=== PATIENT | male | born 1950 | race Caucasian/White ===

== ENCOUNTER 2019-02-22 18:45 | Observation (INO) | payer MEDICARE, SELFPAY ==
[2019-02-22 18:47] VITALS: BP 165/81; PULSE 66; RESP 20; TEMP 36.7; O2SAT 98; BMI 23.6
--- NOTE | 2019-02-22 18:48 | ED.RN ---
CALLED FOR EKG PER RN REQUEST, PULLED OLD EKGS FOR
--- NOTE | 2019-02-22 19:06 | EKG12_ITS ---
Test Reason : CP Blood Pressure : / mmHG Vent. Rate : 058 BPM Atrial Rate : 058 BPM P-R Int : 184 ms QRS Dur : 114 ms QT Int : 426 ms P-R-T Axes : 057 -15 050 degrees QTc Int : 418 ms Sinus bradycardia Otherwise normal ECG Confirmed by RAFAEL HECK, LOC ([id number]), supervising film or videotape editor HOME DAHL ([id number]) on 03/01/2019 9:31:30 A M Referred By: Mac Corey Confirmed By:MARGO HALL MD
--- NOTE | 2019-02-22 19:06 | RAD_ITS ---
STUDY: X-RAY CHEST REASON FOR EXAM: Male, 68 years old. Chest pain TECHNIQUE: Frontal view of the chest COMPARISON: None. FINDINGS: The lungs are clear. There are no pleural effusions. There is no pneumothorax. The heart is normal in size. The visualized osseous structures are within normal limits. RAD/Chest 1 View (Portable) IMPRESSION: No acute thoracic pathology. Electronically Signed: Justin Eller, at 19:31 EDT Tel , Service support ,
[2019-02-22] MEDS: Aspirin 81 MG TAB.CHEW 324 MG PO (19:13)
--- NOTE | 2019-02-22 19:16 | ED.DCSUM_ITS ---
- ER Visit Summary Date of Service: 02/22/19 Chief Complaint: Chest pain History of Present Illness: The patient is a 68 M presenting with chest pain. Patient states this started while he was up in a tree stand. He had approximately 45 minutes of midsternal chest pain that radiated to his neck. He took 2 nitro and the symptoms resolved. He denies shortness of breath. He is pain-free now. He has a history of 7 previous stents and CABG in 2017. He is not a smoker. He has a history of diabetes, hypercholesterolemia. He is prescribed Viagra but has not been taking it. Physical Examination: Vitals are stable. Patient is afebrile. Alert no acute distress. HEENT exam is unremarkable. Neck is supple. Lungs are clear and equal bilaterally. Heart is regular rate and rhythm. Abdomen is soft nontender nondistended. Extremities are unremarkable. Skin is warm and dry. No focal neurologic deficit. Remainder of exam is unremarkable. Emergency Department Course and Treatment: Patient was given aspirin on arrival. EKG is sinus bradycardia rate of 58. CBC, chemistries unremarkable. Troponin is negative. Chest x-ray shows no acute process. Patient remains chest pain- free in the ED. Discussed with the hospitalist for observation. Disposition: Observation Impression: Chest pain This note was generated with [employer] dictation software. It may contain incorrect words, spelling, and punctuation that were not noted in review of the chart prior to signing ED Disposition - Plan for ED Patient: Referrals: Domingo Watts MD [STAFF PHYSICIAN] -
[2019-02-22 19:28] LABS: Absolute Lymphocyte Count 2.03 X10^3/uL (0.83-4.51); Basophil# 0.04 X10^3/uL; Basophil% 0.6 % (0-1); Eosinophil# 0.12 X10^3/uL; Eosinophils% 1.9 % (0-5); Hematocrit 44.8 % (40-54); Hemoglobin 14.7 g/dL (13.0-16.5); Lymphocyte # 2.03 X10^3/ul (4.0); Lymphocyte % 32.2 % (19-41); Mean Corp Hgb Conc 32.8 g/dL (32-36); Mean Corpuscular Hgb 30.7 pg (27.0-32.0); Mean Corpuscular Volume 93.5 fL (80-94); Mean Platelet Vol. 10.2 fl (6.2-12.0); Monocyte# 1.05 X10^3/uL; Monocyte% 16.6 % (0-10); NRBC Flagged by Analyzer 0 % (0-5); Neutrophil # 3.03 X10^3/uL (2.7-7.7); Neutrophil % 48.1 % (47-70); Platelet Count 158 K/mm3 (150-450); RBC Distribution Width CV 12.3 % (11.6-14.6); RBC Distribution Width SD 42.8 fl (35.1-43.9); Red Blood Count 4.79 M/mm3 (4.6-6.2); White Blood Count 6.3 K/mm3 (4.4-11.0)
[2019-02-22 19:30] LABS: Anion Gap 2 (5-15); BUN 19 mg/dL (7-18); BUN/Creat Ratio 20.2 RATIO (10-20); Calcium,Total 9.4 mg/dL (8.5-10.1); Chloride 105 mmol/L (98-107); Creatinine, Serum 0.94 mg/dL (0.70-1.30); EST Glomerular Filtration Rate 85 mL/min (>60); Est Glom Filt Rate - Afr Amer 102 mL/min (>60); Estimated Creatinine Clearance 92.34 ml/min; Glucose 68 mg/dL (74-106); Potassium 3.7 mmol/L (3.5-5.1); Sodium Level 139 mmol/L (136-145)
--- NOTE | 2019-02-22 20:36 | PCM.HP.STD ---
Problem List (1) Coronary artery disease status post CABG Status: Chronic (2) Chest pain Status: Acute (3) Dyslipidemia Status: Chronic (4) Diabetes mellitus type 2 Status: Chronic (5) Hypertension Status: Chronic History of Present Illness Date of Admission: 02/22/19 Chief Complaint: Chest pain The patient is a 68 year old M with history of coronary artery disease status post CABG on November 17, 2016 and 7 stents prior to CABG came to ED for sharp chest pain precordial with radiation to both jaws, lasting for about 45 minutes. Patient took 2 nitro and the symptoms got resolved. He denies diaphoresis, missed heartbeat or shortness of breath. Patient also felt sudden loss of balance/near falling on right side about 2 days ago on plain ground. Denies dizziness or near syncope. Patient heart care is by [facility], Dr. Meade in [facility]. Patient does not remember exactly when he had the last stress test or echo after 5 vessel CABG but states vaguely may be last year Currently patient does not have chest pain or shortness of breath. [] In ED, EKG shows sinus bradycardia at 58 with incomplete RBBB with mild conduction delay, QRS 114 ms, QTC [address]-T changes suggestive of ischemia. No significant change from prior EKG of 2011 but the EKG is old Past Medical History Past Medical History (Chronic Problems): Chronic Problems Coronary artery disease status post CABG (Chronic) Dyslipidemia (Chronic) Diabetes mellitus type 2 (Chronic) Hypertension (Chronic) Allergies succinylcholine Adverse Reaction (Verified 02/22/19 18:47) Unknown tramadol Adverse Reaction (Verified 02/22/19 18:47) Unknown crestor Adverse Reaction (Uncoded 02/22/19 18:47) Unknown gluten Adverse Reaction (Uncoded 02/22/19 18:47) Unknown vicoden Adverse Reaction (Uncoded 02/22/19 18:47) Unknown Home Medications: Ambulatory Orders Medication Instructions Recorded Aspirin [Aspirin, Baby] 81 mg PO DAILY@0800 12/02/15 Calcium Carbonate [Calcium] 1,500 mg PO BID 12/02/15 Cholecalciferol (VIT D3) [Vitamin 2,000 unit PO DAILY 12/02/15 D] Ezetimibe [Zetia] 10 mg PO DAILY 12/02/15 Flaxseed Oil [[place]-3 Flaxseed Oil] 1,000 mg PO BID 12/02/15 Insulin Aspart [Novolog] 0 unit SQ DAILY 12/02/15 Insulin Glargine,Hum.rec.anlog 0 unit SQ PRN PRN 12/02/15 [Lantus] Nitroglycerin (INPATIENT USE) 0.4 mg SUBLINGUAL Q5M PRN 12/02/15 [Nitrostat] [place] Oil/[place]-3 Fatty Acids [Sv 1 cap PO BID 12/02/15 [place] Oil 1,000 mg Softgel] Amoxicillin [Amoxil] 2,000 mg PO DAILY PRN PRN 02/22/19 Cinnamon Bark [Cinnamon] 500 mg PO BID 02/22/19 Fluvastatin Sodium [Fluvastatin ER] 80 mg PO DAILY 02/22/19 Glucosamine HCl 1,500 mg PO DAILY 02/22/19 Magnesium Oxide [Mag-Ox 400] 400 mg PO BID 02/22/19 Metoprolol Succinate [Toprol Xl] 25 mg PO DAILY 02/22/19 Multivitamin with Minerals 1 tab PO DAILY 02/22/19 [Multiple Vitamin] Mv-Mn/Folic AC/Alip Acid/Coq10 1 tab PO DAILY 02/22/19 [Diabetic Vitamin Capsule] Parsley/Garlic [Garlic & Parsley 1 tab PO BID 02/22/19 Tablet] Sildenafil Citrate 100 mg PO DAILY 02/22/19 Turmeric Root Extract [Turmeric 1,000 mg PO BID 02/22/19 Curcumin] Vitamin B Complex 1 ea PO BID 02/22/19 Surgical History: - - back surgery, neuroplasty decompression median nerve at carpal tunnel, history of rotator cuff repair. Smoking Status: Never smoker - *Family History Paternal History Items: Heart Disease - Maternal History Items: Heart Disease Review of Systems Constitutional: Denies: Chills, Fever, Weight Change HEENT: Denies: Head Aches, Sinus Congestion, Sinus Drainage Cardiovascular: Reports: Chest Pain. Denies: Palpitations Respiratory: Denies: Cough, Shortness of breath at rest, Sputum production Gastrointestinal: Denies: Abdominal Pain, Nausea, Vomiting Genitourinary: Denies: Dysuria Musculoskeletal: Denies: Joint Pain, Joint Tenderness Skin: Denies: Rash, Wounds Neurological: Denies: Numbness, Tingling, Focal weakness Psychiatric: Denies: Anxiety, Depression, Homicidal Ideations, Suicidal Ideations Hematologic/ Lymphatic: Denies: Easy Bruising, Easy Bleeding VTE Information - Inpt Only VTE Present on Admission: No VTE Mechan Device Prophylaxis: None VTE Pharm Prophylaxis ordered?: Yes Patient Problems: Active and Suspected Problems Chest pain (Acute) - Physical Exam General: Alert, Oriented x3, Cooperative HEENT: Atraumatic, PERRLA, EOMI, Normocephalic Neck: Supple, No JVD, Negative Carotid Bruits Lungs: Clear to auscultation, Normal air movement, No rhonchi, No wheeze, No rales Cardiovascular: Regular rate, Regular Rhythm, Normal S1, Normal S2, Murmur - Faint systolic murmur, grade 2/6 over left lower sternal border and mitral region. Abdomen: Bowel Sounds Present, Soft, Non Tender, Non-Distended Extremities: No edema, Capillary Refill Less than 3 Seconds Skin: No rashes, No breakdown Musculoskeletal: No Tenderness to Palpation of Joints or Extremities, Arthritic Changes Neurological: Cranial nerves II-XII grossly intact, Deep Tendon Reflexes 2+/4 and Symmetrical, Neuro grossly intact Psych/Mental Status: Normal Affect, Appropriate Vital Signs Temp Pulse Resp BP Pulse Ox 98.1 F 66 20 H 165/81 H 98 02/22/19 18:47 02/22/19 18:47 02/22/19 18:47 02/22/19 18:47 02/22/19 18:47 Oxygen Flow Rate (L/min) 2 Oxygen Delivery Method Nasal Cannula Weight: 194 lb 8 oz Body Mass Index (BMI) 23.6 Finger Stick Blood Glucose 323 Laboratory Tests Past 24 Hrs 02/22/19 02/22/19 18:49 18:49 WBC 6.3 RBC 4.79 Hgb 14.7 Hct 44.8 MCV 93.5 MCH 30.7 MCHC 32.8 RDW Std Deviation 42.8 RDW Coeff of Kavon 12.3 Plt Count 158 MPV 10.2 Immature Gran % (Auto) 0.600 Neut % (Auto) 48.1 Lymph % (Auto) 32.2 [place] % (Auto) 16.6 H Eos % (Auto) 1.9 Baso % (Auto) 0.6 Absolute Neuts (auto) 3.0 Absolute Lymphs (auto) 2.03 Nucleated RBC % 0 Sodium 139 Potassium 3.7 Chloride 105 Carbon Dioxide 32.0 Anion Gap 2 L BUN 19 H Creatinine 0.94 Estim Creat Clear Calc 92.34 Est GFR (MDRD) Af Amer 102 Est GFR (MDRD) Non-Af 85 BUN/Creatinine Ratio 20.2 H Glucose 68 L Calcium 9.4 Troponin I < 0.015 Assessment/Plan All Active Problems Chest pain (Acute) The patient is a 68 year old M with history of coronary artery disease status post CABG on November 17, 2016 and 7 stents prior to CABG came to ED for sharp chest pain precordial with radiation to both jaws, lasting for about 45 minutes. Patient took 2 nitro and the symptoms got resolved. Currently patient does not have chest pain or shortness of breath. [] In ED, EKG shows sinus bradycardia at 58 with incomplete RBBB with mild conduction delay, QRS 114 ms, QTC [address]-T changes suggestive of ischemia. No significant change from prior EKG of 2011 but the EKG is old 1. Atypical chest pain concern of angina pectoris, rule out acute coronary syndrome: Patient is being admitted to PCU. Serial troponin enzymes. Repeat EKG. Patient is good for treadmill nuclear stress test tomorrow a.m. Obtain old records of echo, stress test and cardiac cath [place] [facility] [place] [facility]. Patient's primary content curator Dr. Meade. Continue patient home dose of aspirin, metoprolol and statin. 2. Diabetes mellitus type 2: Patient has insulin pump. Most recent reading 125 mg/dL. On BMP, glucose 68. 3. Hypertension: Blood pressure is slightly elevated 165/81. Start on losartan low-dose 25 mg daily. 4. Dyslipidemia DVT prophylaxis: On Lovenox 40 mg subcu daily. Code Visit OBSV E&M: 40987 Initial observation care L3
[2019-02-22 20:54] VITALS: BP 152/79; PULSE 54; RESP 16; TEMP 36.5; O2SAT 100
[2019-02-22 20:57] VITALS: BP 141/78
--- NOTE | 2019-02-22 21:02 | EKG12_ITS ---
Test Reason : CP ADMIT Blood Pressure : / mmHG Vent. Rate : 050 BPM Atrial Rate : 050 BPM P-R Int : 194 ms QRS Dur : 108 ms QT Int : 438 ms P-R-T Axes : 070 -04 054 degrees QTc Int : 399 ms Sinus bradycardia Otherwise normal ECG When compared with ECG of 22-FEB-2019 18:55, MANUAL COMPARISON REQUIRED, DATA IS UNCONFIRMED Confirmed by RAFAEL HECK, LOC ([id number]), news assignment editor NEDRA KIMBLE ([id number]) on 03/01/2019 10:15:27 AM Referred By: Mac Corey Confirmed By:MARGO HALL MD
[2019-02-22 21:04] VITALS: BMI 22.8
[2019-02-22 21:27] VITALS: BMI 22.8
[2019-02-22 21:28] VITALS: PULSE 54
[2019-02-22] MEDS: 0.9% Normal Saline 1,000 ML 75 ML IV (22:02)
--- NOTE | 2019-02-22 22:35 | NURSING ---
Dr. Corey notified that pt. refusing Cozaar due to lowers his BP too much and refusing atorvastatin due to allergy. Pt. wants to talk with his own legend maker before starting new BP meds. No further orders.
--- NOTE | 2019-02-22 22:45 | NURSING ---
Pt. has insulin pump and checked his own blood sugar with home glucometer. Result was 97 with no insulin given.
[2019-02-22] MEDS: Enoxaparin 40 MG/0.4 ML Syringe SC (22:47)
[2019-02-22 22:59] VITALS: PULSE 65
[2019-02-22 23:34] VITALS: O2SAT 98
[2019-02-23] VITALS (7 sets, daily range): BP systolic 129–145; BP diastolic 66–76; PULSE 46–61; RESP 16–18; TEMP 36.4–36.6; O2SAT 98–99
--- NOTE | 2019-02-23 05:00 | EKG12_ITS ---
Test Reason : AM EKG Blood Pressure : / mmHG Vent. Rate : 050 BPM Atrial Rate : 050 BPM P-R Int : 186 ms QRS Dur : 112 ms QT Int : 450 ms P-R-T Axes : 069 004 054 degrees QTc Int : 410 ms Sinus bradycardia Incomplete right bundle branch block Borderline ECG When compared with ECG of 22-FEB-2019 20:53, MANUAL COMPARISON REQUIRED, DATA IS UNCONFIRMED Confirmed by RAFAEL HECK, LOC ([id number]), non linear editor NEDRA KIMBLE ([id number] on 03/01/2019 10:13:21 AM Referred By: Mac Corey Confirmed By:MARGO HALL MD
[2019-02-23 06:45] LABS: Bedside Glucose 123 mg/dL (70-110)
[2019-02-23] MEDS: Aspirin 81 MG TAB.CHEW 162 MG PO (06:46)
[2019-02-23 07:11] LABS: Cholesterol 99 mg/dL (200); High Density Lipoprotein 44 mg/dL; Thyroid Stim Hormone (TSH) 2.71 uIU/mL (0.358-3.74); Triglycerides 70 mg/dL; Very Low Density Lipoprotein 14 mg/dL (5-40)
[2019-02-23] MEDS: Ezetimibe 10 MG Tablet PO (10:02)
[2019-02-23] MEDS: Calcium Carbonate 500 MG Tablet 1500 MG PO (10:02)
[2019-02-23] MEDS: Multivitamins,Therapeutic Tablet 2 TABLET PO (10:02)
[2019-02-23] MEDS: Metoprolol(XL)Succ 25 MG Tablet PO (10:02)
--- NOTE | 2019-02-23 11:07 | STRESSREP_ITS ---
Stress Test Report Date: 02/23/2019 Procedure: Exercise tolerance test/imaging study Indications: Chest pain Consent: Per the patient Procedure: The patient exercised on a Jose protocol for 8 minutes achieving a peak heart rate of 130 bpm (85 % predicted maximal heart rate) with a peak blood pressure 160/82 mmHg and a peak MET capacity of 10.1 METs. The baseline ECG demonstrated normal sinus rhythm. The peak exercise ECG demonstrated sinus tachycardia with no significant ischemic changes. EKG during recovery revealed no significant ischemic changes. [There were no cardiac dysrhythmias pretest, during exercise, or recovery]. The functional capacity was considered above average for age. Patient had mild chest pressure at the end of exercise. The examination was discontinued secondary to leg discomfort and shoulder discomfort. Impression: 1. Technically adequate (percent predicted maximal heart rate greater than 85%) exercise tolerance test 2. Stress test is negative for exercise-induced EKG changes of ischemia 3. Patient had mild chest pressure at the end of exercise 4. Functional capacity is above average for age 5. Nuclear images pending Myocardial perfusion imaging study: Technique: The patient was injected with 12 mCi of technetium 99m Cardiolite and subsequently rest SPECT Cardiolite nuclear imaging was obtained in the horizontal long, vertical long, and short axis views. The patient exercised on a Jose protocol. Please see above for details. The patient was injected with 33 mCi of technetium 99m Cardiolite and subsequently stress SPECT Cardiolite nuclear imaging was obtained in the horizontal long, vertical long, and short axis views. A gated Cardiolite study at peak stress was obtained. Interpretation: Rest and stress SPECT Cardiolite nuclear imaging status post realignment, normalization, and attenuation correction, demonstrates overall normal myocardial radioisotope uptake. The gated Cardiolite study demonstrates no significant regional wall motion abnormalities. The reported LVEF is greater than 70 %. Impression: 1. There is no evidence of significant ischemia or infarction. 2. The gated Cardiolite study reports an LVEF of [greater than 70]%. This note was generated with [employer] software. It may contain incorrect words, spelling, and punctuation that were not noted in checking the note before signing.
--- NOTE | 2019-02-23 11:22 | NURSING ---
PT HAS OWN INSULIN PUMP. OKAY TO USE PER DR. EL. BG TAKEN THROUGH [facility]-[id number], NO COVERAGE NEEDED.
--- NOTE | 2019-02-23 11:30 | DCINST_ITS ---
- Discharge Diagnoses Current Active Problems: Current Active and Chronic Problems Coronary artery disease status post CABG (Chronic) Chest pain (Acute) Dyslipidemia (Chronic) Diabetes mellitus type 2 (Chronic) Hypertension (Chronic) You will use the following diet at home:: Cardiac Your food should be the consistency of: Regular Your liquids should be the consistency of: Regular/Thin Discharge Activity: Return to Normal Activity Weight Bearing Status: Weight bearing as tolerated Call your doctor if you observe: Shortness of breath, Chest pain Instructions: What Is Angina? Allergies/Adverse Reactions: Allergies succinylcholine Adverse Reaction (Verified 02/22/19 18:47) Unknown tramadol Adverse Reaction (Verified 02/22/19 18:47) Unknown crestor Adverse Reaction (Uncoded 02/22/19 18:47) Unknown gluten Adverse Reaction (Uncoded 02/22/19 18:47) Unknown vicoden Adverse Reaction (Uncoded 02/22/19 18:47) Unknown Medications to take at Discharge Aspirin [Aspirin, Baby] 81 mg PO DAILY@0800 12/02/15 Calcium Carbonate [Calcium] 1,500 mg PO BID 12/02/15 Cholecalciferol (VIT D3) [Vitamin D3] 2,000 unit PO DAILY 12/02/15 Ezetimibe [Zetia] 10 mg PO DAILY 12/02/15 Flaxseed Oil [[place]-3 Flaxseed Oil] 1,000 mg PO BID 12/02/15 Insulin Aspart [Novolog Vial] 0 unit SQ DAILY 12/02/15 Insulin Glargine,Hum.rec.anlog [Lantus] 0 unit SQ PRN PRN 12/02/15 Nitroglycerin (INPATIENT USE) [Nitrostat] 0.4 mg SUBLINGUAL Q5M PRN 12/02/15 [place] Oil/[place]-3 Fatty Acids [Sv [place] Oil 1,000 mg Softgel] 1 cap PO BID 12/02/15 Amoxicillin [Amoxil] 2,000 mg PO DAILY PRN PRN 02/22/19 Cinnamon Bark [Cinnamon] 500 mg PO BID 02/22/19 Fluvastatin Sodium [Fluvastatin ER] 80 mg PO DAILY 02/22/19 Glucosamine HCl 1,500 mg PO DAILY 02/22/19 Magnesium Oxide [Mag-Ox 400] 400 mg PO BID 02/22/19 Metoprolol Succinate [Toprol Xl] 25 mg PO DAILY 02/22/19 Multivitamin with Minerals [Multiple Vitamin] 1 tab PO DAILY 02/22/19 Mv-Mn/Folic AC/Alip Acid/Coq10 [Diabetic Vitamin Capsule] 1 tab PO DAILY 02/22/19 Parsley/Garlic [Garlic & Parsley Tablet] 1 tab PO BID 02/22/19 Sildenafil Citrate 100 mg PO DAILY PRN 02/22/19 Turmeric Root Extract [Turmeric Curcumin] 1,000 mg PO BID 02/22/19 Vitamin B Complex 1 ea PO BID 02/22/19 Primary Care Physician: Domingo Watts MD [STAFF PHYSICIAN] - Please follow up with your Primary Care Physician in: one week Test Results: Test results from this visit will be discussed in further detail at your follow- up appointment, if applicable. Proposed Discharge Date: 02/23/19
--- NOTE | 2019-02-23 11:31 | PCM.DC.SUM ---
Discharge Date and Diagnosis Date of Admission: 02/22/19 Date of Discharge: 02/23/19 - Primary Discharge Diagnosis Active and Suspected Problems Chest pain (Acute) - Secondary Discharge Diagnosis Chronic Problems Coronary artery disease status post CABG (Chronic) Dyslipidemia (Chronic) Diabetes mellitus type 2 (Chronic) Hypertension (Chronic) Hospital Course and Treatment Imaging Results: 02/23/19 05:55 Nuclear Stress Test - Treadmil [NM] AM (NON MEDS) Operations: None Procedures: Stress test Summary of Care Provided: The patient is a 68 year old M with a past medical history as listed. He has a history of CAD status post CABG in November 2016 and also had 7 stents prior to CABG. He was admitted through the ED with a complaint of sharp precordial chest pain which radiated to both jaws and lasted for about 45 minutes. Symptoms were relieved with 2 nitro tablets. He denied any assisted lightheadedness or dizziness, shortness of breath, palpitations or diaphoresis. In the ED, initial EKG showed sinus bradycardia with heart rate of 58 beats per minutes and EKG showed incomplete right bundle branch block with more conduction delay. There are no acute ST changes. Troponins x3 were negative. He was admitted and managed for chest pain to rule out ACS. He had a stress test on 02/23/2019 which showed no evidence of significant ischemia or infarction in the left ventricular EF was estimated to be 70%. Patient remained stable and was discharged on 110 1019. He is follow-up with his primary care doctor and greaser operator. Patient states he has a history of neck pain 8 due to arthritis and is due to see a neurosurgeon soon to be scheduled for surgery. Patient was counseled to keep this appointment. Patient seen and examined prior to discharge. He had no complaints and felt well. Review of systems otherwise negative. Labs and vitals reviewed. Home medication reviewed and reconciled. o/e: Vital Signs Height 6 ft 4 in Weight: 187 lb 6.287 oz Weight in Pounds 187.4 lbs Pulse Ox 99 Temperature 97.5 F Pulse Rate 61 Respiratory Rate 18 Blood Pressure [2nd BP] 141/78 Blood Pressure 129/76 Blood Pressure Position [2nd Semi-Fowlers BP] Blood Pressure Position Sitting [] General: Alert, Oriented x3, Cooperative HEENT: Atraumatic, PERRLA, EOMI, Normocephalic Neck: Supple, No JVD, Negative Carotid Bruits Lungs: Clear to auscultation, Normal air movement, No rhonchi, No wheeze, No rales Cardiovascular: Regular rate, Regular Rhythm, Normal S1, Normal S2, no audible murmurs Abdomen: Bowel Sounds Present, Soft, Non Tender, Non-Distended Extremities: No edema, Capillary Refill Less than 3 Seconds Skin: No rashes, No breakdown Musculoskeletal: No Tenderness to Palpation of Joints or Extremities, Arthritic Changes Neurological: Cranial nerves II-XII grossly intact, Deep Tendon Reflexes 2+/4 and Symmetrical, Neuro grossly intact Psych/Mental Status: Normal Affect, Appropriate Plan as above. - Physical Exam Vital Signs Temp Pulse Resp BP Pulse Ox 97.5 F L 61 18 129/76 H 99 02/23/19 09:55 02/23/19 10:02 02/23/19 09:55 02/23/19 09:55 02/23/19 09:55 Oxygen Flow Rate (L/min) 2 Oxygen Delivery Method Room Air Weight: 187 lb 6.287 oz Body Mass Index (BMI) 22.8 Finger Stick Blood Glucose 323 Intake and Output for Last 24 Hours 02/21/19 02/22/19 02/23/19 23:59 23:59 23:59 Intake Total 246.25 / 246.25 700 / 700 Balance 246.25 / 246.25 700 / 700 Laboratory Tests Past 24 Hrs 02/22/19 02/22/19 02/22/19 18:49 18:49 18:49 WBC 6.3 RBC 4.79 Hgb 14.7 Hct 44.8 MCV 93.5 MCH 30.7 MCHC 32.8 RDW Std Deviation 42.8 RDW Coeff of Kavon 12.3 Plt Count 158 MPV 10.2 Immature Gran % (Auto) 0.600 Neut % (Auto) 48.1 Lymph % (Auto) 32.2 [place] % (Auto) 16.6 H Eos % (Auto) 1.9 Baso % (Auto) 0.6 Absolute Neuts (auto) 3.0 Absolute Lymphs (auto) 2.03 Nucleated RBC % 0 Sodium 139 Potassium 3.7 Chloride 105 Carbon Dioxide 32.0 Anion Gap 2 L BUN 19 H Creatinine 0.94 Estim Creat Clear Calc 92.34 Est GFR (MDRD) Af Amer 102 Est GFR (MDRD) Non-Af 85 BUN/Creatinine Ratio 20.2 H Glucose 68 L Calcium 9.4 Magnesium 2.0 Troponin I < 0.015 Triglycerides Cholesterol LDL Cholesterol VLDL Cholesterol HDL Cholesterol TSH 02/22/19 02/23/19 02/23/19 22:20 00:25 05:30 WBC RBC Hgb Hct MCV MCH MCHC RDW Std Deviation RDW Coeff of Kavon Plt Count MPV Immature Gran % (Auto) Neut % (Auto) Lymph % (Auto) [place] % (Auto) Eos % (Auto) Baso % (Auto) Absolute Neuts (auto) Absolute Lymphs (auto) Nucleated RBC % Sodium Potassium Chloride Carbon Dioxide Anion Gap BUN Creatinine Estim Creat Clear Calc Est GFR (MDRD) Af Amer Est GFR (MDRD) Non-Af BUN/Creatinine Ratio Glucose Calcium Magnesium Troponin I < 0.015 < 0.015 Triglycerides 70 Cholesterol 99 LDL Cholesterol 41 VLDL Cholesterol 14 HDL Cholesterol 44 TSH 2.71 POC Glucose 02/23/19 06:43 POC Glucose 123 H Discharge Diet: Low fat/ Low Cholesterol Discharge Activity: Return to Normal Activity Weight Bearing Status: Weight bearing as tolerated Call your doctor if you observe: Shortness of breath, Chest pain Home Medications: Medications to take at Discharge Aspirin [Aspirin, Baby] 81 mg PO DAILY@0800 12/02/15 Calcium Carbonate [Calcium] 1,500 mg PO BID 12/02/15 Cholecalciferol (VIT D3) [Vitamin D3] 2,000 unit PO DAILY 12/02/15 Ezetimibe [Zetia] 10 mg PO DAILY 12/02/15 Flaxseed Oil [[place]-3 Flaxseed Oil] 1,000 mg PO BID 12/02/15 Insulin Aspart [Novolog Vial] 0 unit SQ DAILY 12/02/15 Insulin Glargine,Hum.rec.anlog [Lantus] 0 unit SQ PRN PRN 12/02/15 Nitroglycerin (INPATIENT USE) [Nitrostat] 0.4 mg SUBLINGUAL Q5M PRN 12/02/15 [place] Oil/[place]-3 Fatty Acids [Sv [place] Oil 1,000 mg Softgel] 1 cap PO BID 12/02/15 Amoxicillin [Amoxil] 2,000 mg PO DAILY PRN PRN 02/22/19 Cinnamon Bark [Cinnamon] 500 mg PO BID 02/22/19 Fluvastatin Sodium [Fluvastatin ER] 80 mg PO DAILY 02/22/19 Glucosamine HCl 1,500 mg PO DAILY 02/22/19 Magnesium Oxide [Mag-Ox 400] 400 mg PO BID 02/22/19 Metoprolol Succinate [Toprol Xl] 25 mg PO DAILY 02/22/19 Multivitamin with Minerals [Multiple Vitamin] 1 tab PO DAILY 02/22/19 Mv-Mn/Folic AC/Alip Acid/Coq10 [Diabetic Vitamin Capsule] 1 tab PO DAILY 02/22/19 Parsley/Garlic [Garlic & Parsley Tablet] 1 tab PO BID 02/22/19 Sildenafil Citrate 100 mg PO DAILY PRN 02/22/19 Turmeric Root Extract [Turmeric Curcumin] 1,000 mg PO BID 02/22/19 Vitamin B Complex 1 ea PO BID 02/22/19 Primary Care Physician: Domingo Watts MD [STAFF PHYSICIAN] - Please follow up with your Primary Care Physician in: one week Patient Instructions: What Is Angina? Disposition: Home Minutes spent on discharge:: 35 Patient Condition:: Stable Medical Necessity - Tobacco Use Smoking Status: Former smoker Tobacco Use: Non-smoker Meaningful Use Info Meaningful Use Diagnoses (Choose all that apply): None applicable Code Visit OBSV E&M: 19329 Observation care discharge
--- NOTE | 2019-02-23 12:13 | PHA.DC.MR ---
Pharmacy Service has performed discharge medication reconciliation for this patient. No new medications at time of discharge, medications reviewed are previously reported medications. of note; did not include herbal products as these are not found in the drug database. The patient's discharge medication list was reviewed for discrepancies and discrepancies were resolved. Home Medications Aspirin [Aspirin, Baby] 81 mg PO DAILY@0800 12/02/15 Calcium Carbonate [Calcium] 1,500 mg PO BID 12/02/15 Cholecalciferol (VIT D3) [Vitamin D3] 2,000 unit PO DAILY 12/02/15 Ezetimibe [Zetia] 10 mg PO DAILY 12/02/15 Flaxseed Oil [[place]-3 Flaxseed Oil] 1,000 mg PO BID 12/02/15 Insulin Aspart [Novolog Vial] 0 unit SQ DAILY 12/02/15 Insulin Glargine,Hum.rec.anlog [Lantus] 0 unit SQ PRN PRN 12/02/15 Nitroglycerin (INPATIENT USE) [Nitrostat] 0.4 mg SUBLINGUAL Q5M PRN 12/02/15 Anatone Oil/[place]-3 Fatty Acids [Sv Anatone Oil 1,000 mg Softgel] 1 cap PO BID 12/02/15 Amoxicillin [Amoxil] 2,000 mg PO DAILY PRN PRN 02/22/19 Cinnamon Bark [Cinnamon] 500 mg PO BID 02/22/19 Fluvastatin Sodium [Fluvastatin ER] 80 mg PO DAILY 02/22/19 Glucosamine HCl 1,500 mg PO DAILY 02/22/19 Magnesium Oxide [Mag-Ox 400] 400 mg PO BID 02/22/19 Metoprolol Succinate [Toprol Xl] 25 mg PO DAILY 02/22/19 Multivitamin with Minerals [Multiple Vitamin] 1 tab PO DAILY 02/22/19 Mv-Mn/Folic AC/Alip Acid/Coq10 [Diabetic Vitamin Capsule] 1 tab PO DAILY 02/22/19 Parsley/Garlic [Garlic & Parsley Tablet] 1 tab PO BID 02/22/19 Sildenafil Citrate 100 mg PO DAILY PRN 02/22/19 Turmeric Root Extract [Turmeric Curcumin] 1,000 mg PO BID 02/22/19 Vitamin B Complex 1 ea PO BID 02/22/19
== END 2019-02-23 11:30 | disposition home or self-care (01) ==
LOC: ED 19:36 → PCU 20:22
PROVIDERS: Admitting Provider Internal Medicine; Emergency Provider Emergency Medicine; Family Provider Physician Assistant; PCP Physician Assistant; Referring Provider Internal Medicine; Visit Provider Student in an Organized Health Care Education/Training Program
DX: R07.89 Other chest pain (principal); E11.9 Type 2 diabetes mellitus without complications; R00.1 Bradycardia, unspecified; I25.10 Atherosclerotic heart disease of native coronary artery without angina pectoris; E78.5 Hyperlipidemia, unspecified; I10 Essential (primary) hypertension; Z79.899 Other long term (current) drug therapy; Z79.4 Long term (current) use of insulin; Z79.82 Long term (current) use of aspirin; Z95.1 Presence of aortocoronary bypass graft; Z96.41 Presence of insulin pump (external) (internal); I45.10 Unspecified right bundle-branch block; Z87.891 Personal history of nicotine dependence
CPT/HCPCS: 36415; 71045; 78452; 80048; 80061; 82962; 83735; 84443; 84484; 85025; 93005; 93017; 96360; 96361; 96372; 99218; 99285; A9500; J7030; A4216; G0378

== ENCOUNTER 2022-08-25 07:30 | Outpatient (RCR) | payer MEDICARE, SELFPAY ==
--- NOTE | 2022-08-18 09:57 | HP.PTEVAL_ITS ---
Patient's Visit Information RADHA KOO is a 72 year old M referred to Physical Therapy by ARI VICENTE with a diagnosis of s/p cervical fusion years ago. Date of Evaluation: 08/18/22 Physical Therapist: EDUARDO Springer - Visit Plan Frequency: 2x /Week Duration: 6 Weeks Plan: Pt is getting and MRI of his neck. He feels like his neck feels like his stenosis is back and he can elicit arm pain with certain movmements at times. We will opt for postural strengthening until after MRI 08-26-22. 2X/ week for 3- 6 weeks for postural exercises, UE strength, scapular strength, light c-spine ROM as long as does not elicit symptoms with HEP. HEP: green mid rows in standing - Subjective Pt had a spinal fusion of his neck couple of years ago and then had to have it repeated. He thinks he now has a nerve that is pinched in his neck. He has a BURRELL to top of head to top of shoulders and then he has pain that goes into his back and pain all the ways down into his feet. He went to cut the grass the other day and he had to stop mowing 5 times cause he could not walk, this all started in the last couple of months. He has had prior LB surgeries. They are not looking at his LB yet cause they are working on his neck first. He is doing He is fine in sitting as far a his LBP. He is up all night long cause he has pain in his shoulder onto the top of shoulders into his bicep area. He feels that it is pinched in his neck and his back. His MRI of his neck is August 26. He has weakness in his arms and legs. He got stuck inside the window well and had to belly crawl out and had no strength in his legs. Dr Glen Clark is his surgeon but he saw the Nurse practicioner. He can not turn his neck very far. He has been doing the chin tucks and sometimes he gets more movement but other times not. He is wearing a collar per his Dr. The BURRELL come and go. He can sometimes turn his neck to the L and his shoulder pain will come on. - Pain c-spine pain Pain Intensity (Out of 10): 0 BURRELL Pain Intensity (Out of 10): 0 L shoulder pain Pain Intensity (Out of 10): 4 Pain Intensity Range: 4 R shoulder pain Pain Intensity (Out of 10): 1 - Objective C-spine AROM: flex 100%, Ext 10#, R rotation 75%, L rotation 50%, SB B 50%. R SB causes R arm numbness... that stopped when he got out of that position. UE AROM: tight into IR but able to get to approx L3, WFL elevation. UE MMT: B bicep reflex 2+/3 B. Shld flex R 8.9 and L 8.9. shld abd R 10.4 and L 9.6. shld ER R 12.3 and L 7.6. Shld IR R 11.6 and L 10.8. Software Development Leader strength: R 85 and L 70 and pt is R handed. Posture: sits with rounded shoulders and FW and Increase PPT. Palpation: Pt had tenderness along the mid trap region - Balance/Special Test Scores Oswestry Neck Score: 27 - Goals Goal 1:: I HEP Goal Time Frame: 4-6 Weeks Goal 2:: Increase UE strength (at time of the eval: Shld flex R 8.9 and L 8.9. shld abd R 10.4 and L 9.6. shld ER R 12.3 and L 7.6. Shld IR R 11.6 and L 10.8). Goal Time Frame: 4-6 Weeks Goal 3:: Sit with upright posture during treatment sessions Goal Time Frame: 4-6 Weeks - Rehabilitation Potential Rehabilitation Potential: Good - Anticipated Interventions Patient/Client Instruction: Educate patient on: Condition, Plan of Care For the Purpose of:: To decrease pain, To increase ROM, To improve nutrient delivery to tissue, To improve muscle performance and motor function, To improve ability to perform ADL's, To increase tolerance to activity/condition/position, To improve performance and independence with ADL's, To improve health of tissue, To decrease soft tissue restriction, To increase flexibility/ROM Therapeutic Exercise to Include: Strength training, Endurance training, Postural training, Flexibilty training, Neuromotor development, Passive ROM, Active ROM, Scapular Strength/Stabilization For the Purpose of:: To decrease pain, To improve nutrient delivery to tissue, To improve muscle performance and motor function, To improve ability to perform ADL's, To increase tolerance to activity/condition/position, To improve ability of physical actions for home/community/work/leisure, To improve health of tissue, To decrease soft tissue restriction, To increase flexibility/ROM Thank you for the opportunity to evaluate your patient. For Medicare and Medicare HMO plans, please review the plan of care and approve it. It will need to be FAXED BACK to us at [phone] for Medicare purposes. For Medicare only, by signing this I certify the plan of care. Please let me know if there are questions or concerns regarding this plan of care. Physician Signature: Date:
--- NOTE | 2022-11-25 16:13 | HP.PT.NRP ---
Patient Information Patient Information: RADHA KOO was seen in my office for initial evaluation on 08/18/22. The following Plan of Care was established for this patient: POC Established Initial Frequency: 2x /Week Initial Duration: 6 Weeks Anticipated Interventions Patient/Client Instruction: Educate patient on: Condition and Plan of Care For the Purpose of:: To decrease pain, To increase ROM, To improve nutrient delivery to tissue, To improve muscle performance and motor function, To improve ability to perform ADL's, To increase tolerance to activity/condition/position, To improve performance and independence with ADL's, To improve health of tissue, To decrease soft tissue restriction and To increase flexibility/ROM Therapeutic Exercise to Include: Strength training, Endurance training, Postural training, Flexibilty training, Neuromotor development, Passive ROM, Active ROM and Scapular Strength/Stabilization For the Purpose of:: To decrease pain, To improve nutrient delivery to tissue, To improve muscle performance and motor function, To improve ability to perform ADL's, To increase tolerance to activity/condition/position, To improve ability of physical actions for home/community/work/leisure, To improve health of tissue, To decrease soft tissue restriction and To increase flexibility/ROM Last Seen Last Seen: This patient was last seen in our office 08/25/22. Pertinent comments regarding their Physical therapy will appear below: DC PT At this point I will be discontinuing this patient from physical therapy. I would be happy to see this patient again in the future if found appropriate by the physician. Thank you! Courtney Duffy, MPT Balance/Gait/Functional tests Balance/Special Test Scores Oswestry Neck Score: 27
== END 2022-08-25 19:00 | disposition home or self-care (01) ==
LOC: PT 07:30
PROVIDERS: PCP Physician Assistant
DX: M50.30 Other cervical disc degeneration, unspecified cervical region (principal); Z98.1 Arthrodesis status
CPT/HCPCS: 97110; 97161; 97164

== ENCOUNTER 2023-04-01 07:34 | Emergency (ER) | payer MEDICARE, SELFPAY ==
[2023-04-01 07:35] VITALS: BP 158/73; PULSE 75; RESP 14; TEMP 35.7; O2SAT 99; BMI 24.8
--- NOTE | 2023-04-01 07:45 | CT_ITS ---
STUDY: CT LUMBAR SPINE WITHOUT CONTRAST REASON FOR EXAM: Male, 72 years old. Trauma. Pain. RADIATION DOSAGE (If Supplied By Facility): CTDIvol = ( 13.01 ) mGy, DLP = ( 365.10 ) mGycm TECHNIQUE: The patient was scanned in a multi detector CT scanner. High resolution transaxial imaging was performed. Images were obtained through the lumbar spine. Sagittal and coronal images were reconstructed. Individualized dose optimization techniques were used for this CT. COMPARISON: No relevant prior comparison study available FINDINGS: BONES: There are postsurgical changes from posterior fusion of L4/L5 with associated laminectomies. The hardware is intact. There are minimally displaced fractures of the tips of the right transverse processes of L1, L2 and L3. There are no additional lumbar spine fractures. The vertebral body heights are maintained. ALIGNMENT: There is no dislocation. There is grade 2 anterolisthesis of L4 with respect to L5. DISC SPACES: There are moderate degenerative changes which are most pronounced at L1/L2.. SOFT TISSUES: The visualized paraspinal soft tissues are within normal limits. CT/Spine Lumbar without Contrast IMPRESSION: Minimally displaced fractures of the tips of the right transverse processes of L1, L2 and L3. No additional fracture in the lumbar spine. Status post posterior fusion of L4/L5 with associated laminectomies. Grade 2 anterolisthesis of L4 with respect to L5. No dislocation. Moderate degenerative change. Electronically Signed: Thaddeus Mcnamara MD at 8:25 EST ,
--- NOTE | 2023-04-01 07:45 | RAD_ITS ---
STUDY: X-RAY - RIGHT SHOULDER REASON FOR EXAM: Male, 72 years old. Pain. Trauma. TECHNIQUE: 4 view(s) of the shoulder. COMPARISON: None. FINDINGS: There is no evidence of fracture or dislocation. There are mild degenerative changes. There are tendon anchors noted in the humeral head. There are no radiodense foreign bodies. RAD/Shoulder min 2 Views IMPRESSION: No fracture or dislocation in the right shoulder. Mild degenerative change. Electronically Signed: Thaddeus Mcnamara MD at 8:13 EST ,
--- NOTE | 2023-04-01 07:51 | ED.VIS.BACK ---
HPI History of Present Illness Chief Complaint: Back Narrative Narrative: 72-year-old male past medical history of remote rotator cuff repair of her right shoulder and hardware in his lumbar spine presents status post fall yesterday evening at 9 PM. This was approximately 11 hours ago. He states that he usually sprays down the shower basin/tub with a self housecleaner floor. He has been doing it for years. Yesterday he ran the water a bit to help rinse it off. It was slippery in the tub, and after he had stepped in, he fell backwards. He states both of his feet went up in the air and he hit his low back mainly on the right. He also fell onto his right shoulder. He denies loss of consciousness or neck pain. He went to his primary care provider today who sent him to the emergency department for imaging. Patient reports that he is to get a CT of his shoulder and lumbar spine and to check for internal bleeding. He denies any abdominal pain, any nausea or vomiting, no real shoulder pain but noticed bruising of his low back mainly towards the right. No other injury. He was able to drive himself to his primary care provider's office, and to the emergency department. There is mild pain in his low back that is worse with movement and transfer. He is concerned about fractures around his hardware and if the screws in his shoulder from his rotator cuff repair are still in place. He does not take blood thinners. He is right-hand dominant. [facility] Home Medications aspirin 81 mg chewable tablet 81 mg PO DAILY@0800 12/02/15 [History Last Taken 02/22/19] calcium carbonate 500 mg calcium (1,250 mg) chewable tablet 1,500 mg PO BID 12/02/15 [History Last Taken 02/22/19] cholecalciferol (vitamin D3) 25 mcg (1,000 unit) tablet (Vitamin D3) 2,000 unit PO DAILY 12/02/15 [History Last Taken 02/22/19] ezetimibe 10 mg tablet 10 mg PO DAILY 12/02/15 [History Last Taken 02/22/19] flaxseed oil 1,000 mg capsule ([place]-3 Flaxseed Oil) 1,000 mg PO BID 12/02/15 [History Last Taken 02/22/19] insulin aspart U-100 100 unit/mL subcutaneous solution (Novolog U-100 Insulin aspart) 0 unit SQ DAILY 12/02/15 [History Last Taken 02/22/19] insulin glargine 100 unit/mL subcutaneous solution (Lantus U-100 Insulin) 0 unit SQ PRN PRN INSULIN PUMP FAILURE 12/02/15 [History Last Taken Unknown] nitroglycerin 0.4 mg sublingual tablet 0.4 mg sublingual Q5M PRN Chest Pain 12/02/15 [History Last Taken 02/22/19] salmon oil 1,000 mg-omega-3 fatty acids 210 mg capsule 1 cap PO BID 12/02/15 [History Last Taken 02/22/19] amoxicillin 500 mg capsule 2,000 mg PO DAILY PRN PRN dental appointment 02/22/19 [History Last Taken 02/20/19] cinnamon bark 500 mg capsule 500 mg PO BID 02/22/19 [History Last Taken 02/22/19] fluvastatin 80 mg tablet,extended release 24 hr 80 mg PO DAILY 02/22/19 [History Last Taken 02/22/19] garlic-parsley tablet 1 tab PO BID 02/22/19 [History Last Taken 02/22/19] glucosamine HCl 1,500 mg tablet 1,500 mg PO DAILY 02/22/19 [History Last Taken 02/22/19] magnesium oxide 400 mg (241.3 mg magnesium) tablet 400 mg PO BID 02/22/19 [History Last Taken 02/22/19] metoprolol succinate 25 mg tablet,extended release 24 hr 25 mg PO DAILY 02/22/19 [History Last Taken 02/22/19] [id number] 800 mcg-alpha alipoic acid 150 mg-co Q10 50 mg capsule 1 tab PO DAILY supplement 02/22/19 [History Last Taken 02/22/19] multivitamin with minerals 1 tab PO DAILY 02/22/19 [History Last Taken 02/22/19] sildenafil 100 mg tablet 100 mg PO DAILY PRN erectile dysfunction 02/22/19 [History Last Taken 02/18/19] turmeric root extract 500 mg capsule 1,000 mg PO BID 02/22/19 [History Last Taken 02/22/19] vitamin B complex 1 ea PO BID 02/22/19 [History Last Taken 02/22/19] Allergy/AdvReac Type Severity Reaction Status Date / Time acetaminophen [From Vicodin] AdvReac NEEDS Verified 04/01/23 07:50 FOLLOW-UP gluten AdvReac NEEDS Verified 04/01/23 07:50 FOLLOW-UP hydrocodone [From Vicodin] AdvReac NEEDS Verified 04/01/23 07:50 FOLLOW-UP rosuvastatin [From Crestor] AdvReac NEEDS Verified 04/01/23 07:50 FOLLOW-UP succinylcholine AdvReac Unknown Verified 04/01/23 07:50 tramadol AdvReac Unknown Verified 04/01/23 07:50 Social History Smoking Status: Never smoker ROS ROS ED ROS Narrative Constitutional: No fever, no chills. HEENT: No sore throat. No neck pain. No loss of vision. No rhinorrhea. Cardiovascular: No chest pain. No palpitations. No pedal edema. Respiratory: No cough, no shortness of breath. Abdominal: No abdominal pain. No nausea. No vomiting. No hematemesis. Genitourinary: No dysuria. No hematuria. Musculoskeletal: No myalgias. Mild right shoulder pain. Positive low back pain and bruising. Neurologic: No headaches. No dizziness. No lightheadedness. Skin: No rash. No change in color. Psychiatric: No depression. No anxiety. EXAM Physical Exam Narrative Exam Narrative: Afebrile. Vital signs noted. GCS 15. ABCs intact. HEENT: Normocephalic. Atraumatic. PERRL, EOMI. Neck soft and supple. No point tenderness or step off. Cardiovascular: Regular rate and rhythm. No murmurs, rubs, or gallops appreciated. Respiratory: No tachypnea. Lungs clear to auscultation bilaterally. Gastrointestinal: Abdomen soft, nontender, with normoactive bowel sounds. No rebound or guarding. Neurological: Awake. Alert. Nonfocal, nonlateralizing. Skin: No rash. Normal color. No pallor. Musculoskeletal: No pedal edema. Full range of motion extremities. No crepitance of right shoulder. Neurovascular intact distally with palpable radial pulse. Inspection of the low back shows a well-healed scar in the midline. There is ecchymosis and tenderness in the right paraspinal musculature. No crepitance. Const Vital Signs: 04/01/23 07:35 Temperature 96.2 F L Temperature Source Temporal Pulse Rate 75 Respiratory Rate 14 Blood Pressure 158/73 H Blood Pressure Mean 101 Pulse Ox 99 Oxygen Delivery Method Room Air MDM MDM MDM Narrative Medical decision making narrative: Reviewed the patient's prior records. No feel laboratory work is indicated. Additionally, I do not feel CT is necessary for his right shoulder but I will obtain x-rays to look for occult fracture or any loosening of the hardware. I do feel that CT of the lumbar spine would be indicated given his bruising, but I do have no concern for abdominal/intra-abdominal hemorrhage. As he does have hardware in his lumbar spine, he was told that there could be artifact which could include fracture. Concern is for lumbar contusion versus fracture, same goes for his shoulder whether it is a shoulder contusion versus fracture versus strain/sprain. X-rays of the right shoulder interpreted by myself independently in 3 views shows no evidence of acute fracture or dislocation. There are postsurgical changes. I reviewed the radiology report for the CT of the lumbar spine and noted the comment that he has minimally displaced fractures of the tips of the right transverse processes of L1, L2, and L3. There are no additional fractures. I do feel that these are stable fractures. Patient declined any analgesics here in the emergency department and declined prescriptions for narcotic pain medication. He has a follow-up appointment with his surgeon, Dr. Tim Clark, at the [facility] at the end of the month. At this point in time, I feel he can be discharged to follow-up with his spine surgeon. I do not feel he requires admission. He was able to stand and ambulate here in the emergency department. Return instructions to the emergency department were reviewed. He will continue [id number] analgesics. Disposition is discharged home in stable condition. History & Record Review Discussion w/independent historian: Patient Additional record(s) reviewed:: Prior ED visit Radiography Diagnostic Testing: Clinical Impression(s) from Imaging Studies Lumbar Spine CT 04/01/23 07:45 IMPRESSION: Minimally displaced fractures of the tips of the right transverse processes of L1, L2 and L3. No additional fracture in the lumbar spine. Status post posterior fusion of L4/L5 with associated laminectomies. Grade 2 anterolisthesis of L4 with respect to L5. No dislocation. Moderate degenerative change. Electronically Signed: Thaddeus Mcnamara MD at 8:25 EST , Shoulder X-Ray 04/01/23 07:45 IMPRESSION: No fracture or dislocation in the right shoulder. Mild degenerative change. Electronically Signed: Thaddeus Mcnamara MD at 8:13 EST , Discharge Plan Triage Chief Complaint: Back ED Provider: Josh Farrell Dx/Rx/DC Orders Clinical Impression: Fall in shower, Contusion of right shoulder, initial encounter, Lumbar contusion, Fracture of transverse process of lumbar vertebra Instructions: ED Back Contusion, ED Mechanical Fall, ED Transverse Process Fracture, ED Shoulder Contusion Prescriptions: No Action insulin glargine [Lantus U-100 Insulin] 100 UNIT/ML solution 0 unit SQ PRN PRN (Reason: INSULIN PUMP FAILURE) flaxseed oil [[place]-3 Flaxseed Oil] 1,000 MG capsule 1,000 mg PO BID insulin aspart U-100 [Novolog U-100 Insulin aspart] 100 UNIT/ML solution 0 unit SQ DAILY Patient Comments: INSULIN PUMP nitroglycerin 0.4 MG tablet 0.4 mg sublingual Q5M PRN (Reason: Chest Pain) aspirin 81 MG tablet,chewable 81 mg PO DAILY@0800 calcium carbonate 500 MG tablet,chewable 1,500 mg PO BID ezetimibe 10 MG tablet 10 mg PO DAILY cholecalciferol (vitamin D3) [Vitamin D3] 1,000 UNIT tablet 2,000 unit PO DAILY salmon oil-omega-3 fatty acids 1 EACH capsule 1 cap PO BID sildenafil 100 MG tablet 100 mg PO DAILY PRN (Reason: erectile dysfunction) fluvastatin 80 MG tablet extended release 24 hr 80 mg PO DAILY amoxicillin 500 MG capsule 2,000 mg PO DAILY PRN PRN (Reason: dental appointment) Patient Comments: take 4 tablets by mouth 1 HOUR PRIOR TO APPOINTMENT magnesium oxide 400 MG tablet 400 mg PO BID vitamin B complex 1 EACH tablet 1 ea PO BID garlic-parsley 1 EACH tablet 1 tab PO BID metoprolol succinate 25 MG tablet extended release 24 hr 25 mg PO DAILY multivitamin with minerals 1 EACH tablet 1 tab PO DAILY cinnamon bark 500 MG capsule 500 mg PO BID glucosamine HCl 1,500 MG tablet 1,500 mg PO DAILY turmeric root extract 500 MG capsule 1,000 mg PO BID [id number] lipoic acid-co Q10 1 EACH capsule 1 tab PO DAILY Primary Care Provider: Yonny Eckert Referrals: Tim Clark DO [Non-Staff] - Keep Eric appointment Yonny Eckert, PA [Primary Care Provider] - 1 Week if not improving Activity Restrictions/Additional Instructions: Let your spine surgeon know that you have fractures of the right transverse processes of L1, L2, and L3. Disposition Disposition: Home, Self Care
== END 2023-04-01 09:10 | disposition home or self-care (01) ==
PROVIDERS: Emergency Provider Emergency Medicine; PCP Physician Assistant; Visit Provider Emergency Medicine
DX: S40.011A Contusion of right shoulder, initial encounter (principal); S32.019A Unspecified fracture of first lumbar vertebra, initial encounter for closed fracture; S32.029A Unspecified fracture of second lumbar vertebra, initial encounter for closed fracture; S32.039A Unspecified fracture of third lumbar vertebra, initial encounter for closed fracture; S30.0XXA Contusion of lower back and pelvis, initial encounter; W19.XXXA Unspecified fall, initial encounter
CPT/HCPCS: 72131; 73030; 99282

== ENCOUNTER 2023-06-29 12:55 | Emergency (ER) | payer MEDICARE, SELFPAY ==
[2023-06-29 12:56] VITALS: BP 178/85; PULSE 71; RESP 18; TEMP 35.8; O2SAT 99; BMI 24.8
--- NOTE | 2023-06-29 14:35 | CT_ITS ---
STUDY: CT CERVICAL SPINE WITHOUT CONTRAST REASON FOR EXAM: Male, 72 years old. Pain following injury. RADIATION DOSAGE (If Supplied By Facility): CTDIvol = ( 33 ) mGy, DLP = ( 1400.15 ) mGycm TECHNIQUE: High resolution transaxial imaging was performed without contrast material. Sagittal and coronal images were reconstructed. Individualized dose optimization techniques were used for this CT. COMPARISON: None FINDINGS: Normal craniovertebral junction. Normal anterior atlantoaxial articulation. Normal odontoid process. Normal cervical lordosis. The patient is status post anterior fusion with screw and plate fixation and prosthetic disc placement at the C4-C5 and C5-C6 levels. C2-3: Normal endplates. Normal disc height and morphology. Normal central canal and intervertebral neuroforamina. C3-4: Normal endplates. Normal disc height and morphology. Normal central canal and intervertebral neuroforamina. C4-5: Prior anterior fusion and disc placement. Facet joint osteoarthritis and hypertrophy. Uncovertebral arthrosis. Mild degree of bilateral neural foraminal stenosis. C5-6: Disc space narrowing. Prior anterior fusion. Uncovertebral arthrosis and posterior spondylosis causing a moderate degree of bilateral neural foraminal stenosis worse on the left side. C6-7: Status post anterior fusion. Uncovertebral arthrosis. Moderate degree of left neural foraminal stenosis. C7-T1: Normal endplates. Normal disc height and morphology. Normal central canal and intervertebral neuroforamina. Atherosclerotic calcification of the carotid bifurcations bilaterally. CT/Spine Cervical without Contras IMPRESSION: Multilevel degenerative changes, as described above. Status post anterior fusion at the C4-C5 and C5-C6 levels with prosthetic disc placement. Electronically Signed: Alistair Nova MD at 15:28 EST ,
--- NOTE | 2023-06-29 14:35 | CT_ITS ---
STUDY: CT BRAIN WITHOUT CONTRAST REASON FOR EXAM: Male, 72 years old. Headache. RADIATION DOSAGE (If Supplied By Facility): CTDIvol = ( 44.99 ) mGy, DLP = ( 829.85 ) mGycm TECHNIQUE: Transaxial CT imaging of the brain was performed without administration of intravenous contrast material. Individualized dose optimization techniques were used for this CT. COMPARISON: Comparison is made with prior study February 07, 2017. FINDINGS: Normal soft tissue structures. Normal calvarium. There is mild cerebral atrophy with widening of the extra-axial spaces and ventricular dilatation. Normal white matter tracts of the cerebral hemispheres. Normal basal ganglia and thalami. Normal brainstem. Normal cerebellum. There is no intracranial hemorrhage. There are no findings of an acute ischemic infarction. Minimal mucosal thickening of the ethmoid sinuses bilaterally. CT/Brain/Head without Contrast IMPRESSION: Chronic involutional changes of the brain. Electronically Signed: Alistair Nova MD at 15:28 EST ,
--- NOTE | 2023-06-29 14:36 | EX.ED.DYSGE1 ---
HPI History of Present Illness Chief Complaint: Other, Pain/Inj Informant: patient Onset/Context/Timing Onset: Yesterday Context: Gradual Onset Timing: Continuous Quality: Dull Location: Neck and left occipital head Worsened by: Certain movements Relieved by: Nothing Narrative Narrative: Patient presents with pain in his head and neck that began yesterday. Patient states it is gradually gotten worse since yesterday. Patient states it is mainly over the left occipital area and down into his neck bilaterally. Patient describes his pain as dull. Patient states it is worse with certain movements. Patient states nothing seems to help with it. Patient denies any trauma or injury. Patient states he woke up with it yesterday. Patient denies any paresthesias or weakness. Patient has a history of cervical fusion and cervical disc disease. Patient states the pain is somewhat similar to the pain he had when he ruptured a disc in his neck in the past. [facility] Medical History Diabetes History of stress test Hypertension Non-smoker Wears hearing aid in both ears Home Medications aspirin 81 mg chewable tablet 81 mg PO DAILY@0800 12/02/15 [History Last Taken 02/22/19] calcium carbonate 500 mg calcium (1,250 mg) chewable tablet 1,500 mg PO BID 12/02/15 [History Last Taken 02/22/19] cholecalciferol (vitamin D3) 25 mcg (1,000 unit) tablet (Vitamin D3) 2,000 unit PO DAILY 12/02/15 [History Last Taken 02/22/19] ezetimibe 10 mg tablet 10 mg PO DAILY 12/02/15 [History Last Taken 02/22/19] flaxseed oil 1,000 mg capsule ([place]-3 Flaxseed Oil) 1,000 mg PO BID 12/02/15 [History Last Taken 02/22/19] insulin aspart U-100 100 unit/mL subcutaneous solution (Novolog U-100 Insulin aspart) 0 unit SQ DAILY 12/02/15 [History Last Taken 02/22/19] insulin glargine 100 unit/mL subcutaneous solution (Lantus U-100 Insulin) 0 unit SQ PRN PRN INSULIN PUMP FAILURE 12/02/15 [History Last Taken Unknown] nitroglycerin 0.4 mg sublingual tablet 0.4 mg sublingual Q5M PRN Chest Pain 12/02/15 [History Last Taken 02/22/19] salmon oil 1,000 mg-omega-3 fatty acids 210 mg capsule 1 cap PO BID 12/02/15 [History Last Taken 02/22/19] amoxicillin 500 mg capsule 2,000 mg PO DAILY PRN PRN dental appointment 02/22/19 [History Last Taken 02/20/19] cinnamon bark 500 mg capsule 500 mg PO BID 02/22/19 [History Last Taken 02/22/19] fluvastatin 80 mg tablet,extended release 24 hr 80 mg PO DAILY 02/22/19 [History Last Taken 02/22/19] garlic-parsley tablet 1 tab PO BID 02/22/19 [History Last Taken 02/22/19] glucosamine HCl 1,500 mg tablet 1,500 mg PO DAILY 02/22/19 [History Last Taken 02/22/19] magnesium oxide 400 mg (241.3 mg magnesium) tablet 400 mg PO BID 02/22/19 [History Last Taken 02/22/19] metoprolol succinate 25 mg tablet,extended release 24 hr 25 mg PO DAILY 02/22/19 [History Last Taken 02/22/19] [id number] 800 mcg-alpha alipoic acid 150 mg-co Q10 50 mg capsule 1 tab PO DAILY supplement 02/22/19 [History Last Taken 02/22/19] multivitamin with minerals 1 tab PO DAILY 02/22/19 [History Last Taken 02/22/19] sildenafil 100 mg tablet 100 mg PO DAILY PRN erectile dysfunction 02/22/19 [History Last Taken 02/18/19] turmeric root extract 500 mg capsule 1,000 mg PO BID 02/22/19 [History Last Taken 02/22/19] vitamin B complex 1 ea PO BID 02/22/19 [History Last Taken 02/22/19] cyclobenzaprine 10 mg tablet 10 mg PO QHS PRN PRN Muscle Spasm #10 TABLETS 06/29/23 [Rx Last Taken Unknown] Allergy/AdvReac Type Severity Reaction Status Date / Time oxycodone Allergy Mild PT UNSURE Verified 06/29/23 12:56 OF REACTION acetaminophen [From Vicodin] AdvReac NEEDS Verified 06/29/23 12:56 FOLLOW-UP gluten AdvReac NEEDS Verified 06/29/23 12:56 FOLLOW-UP hydrocodone [From Vicodin] AdvReac NEEDS Verified 06/29/23 12:56 FOLLOW-UP rosuvastatin [From Crestor] AdvReac NEEDS Verified 06/29/23 12:56 FOLLOW-UP succinylcholine AdvReac Unknown Verified 06/29/23 12:56 tramadol AdvReac Unknown Verified 06/29/23 12:56 Surgical History (Updated 06/29/23 @ 15:[address] Isaías Hastings DO) History of carpal tunnel surgery History of coronary artery stent placement History of hip replacement, total Hx of CABG Hx of fusion of cervical spine Previous back surgery Social History Smoking Status: Never smoker ROS ROS ED Constitutional Constitutional ED: Denies chills or fever(s) Eyes Eyes: Denies blurry vision or change in vision ENT ENT ED: Reports sore throat; Denies rhinorrhea Cardiovascular Cardiovascular: Denies chest pain or palpitations Respiratory/Chest Respiratory/Chest: Denies cough or dyspnea Gastrointestinal Gastrointestinal: Denies nausea or vomiting Genitourinary Genitourinary ED: Denies dysuria or hematuria Musculoskeletal Musculoskeletal: Reports back pain and neck pain Integumentary Denies abscess or rash Neurologic Neurologic: Reports headache(s); Denies weakness Allergic/Immunologic Allergic/Immunologic ED: Denies mouth swelling or urticaria EXAM Physical Exam Const Vital Signs: 06/29/23 12:56 06/29/23 13:09 Temperature 96.5 F L Temperature Source Temporal Pulse Rate 71 Respiratory Rate 18 Respiratory Effort Normal Respiratory Pattern Normal Blood Pressure 178/85 H Blood Pressure Mean 116 Pulse Ox 99 Oxygen Delivery Method Room Air Positive well nourished and well developed General Appearance ED: well developed and NAD HEENT Reports moist mucous membranes Eyes PERRL and EOMs intact bilaterally Neck supple and no JVD Neck Narrative: There is tenderness over the cervical spine and paraspinal muscles bilaterally. There is no bony crepitance or step-off. There is no edema or ecchymosis. Range of motion was limited in all motions of the cervical spine secondary to pain. General: tenderness Resp normal respiratory effort and clear to auscultation bilaterally Cardio regular rate and regular rhythm GI non-tender and non-distended Palpation: soft Extremity normal to inspection Neuro oriented x3, CN's II-XII intact bilaterally and no sensory deficits noted Sensorium / Orientation: alert Motor Exam: strength 5/5 throughout Psych mental status grossly normal MDM MDM MDM Narrative Medical decision making narrative: Differential diagnosis includes cervical disc disease, degenerative arthritis, migraine headache, tension headache, intracranial bleeding, subluxation of cervical spine, and cervical radiculopathy. CT scan of the brain will be obtained to assess for intracranial bleeding. CT scan of the cervical spine will be obtained to assess for spondylolisthesis, occult fracture, and degenerative arthritis. Radiography Diagnostic Testing: CT scan of the cervical spine was obtained. There are multilevel degenerative changes noted. There is fusion at C4-C5 and C5-C6 levels with prosthetic displacement at these levels. This was interpreted by the radiologist and was also independently reviewed by myself. CT scan of the brain was obtained. There is no acute intracranial abnormality. There are chronic involutional changes noted. This was interpreted by the radiologist and was also independently reviewed by myself. Treatment and Re-Evaluation :: Patient was advised of his findings. Patient was given a prescription for a short course of Flexeril. Patient was instructed to take Tylenol or ibuprofen as needed for pain. Patient was instructed to follow-up with his primary care physician in 5 to 7 days. Patient understood and was agreeable with the plan. All questions were answered. Discharge Plan Triage Chief Complaint: Other, Pain/Inj ED Provider: Isaías Hastings Dx/Rx/DC Orders Clinical Impression: Acute cervical myofascial strain, Diabetes mellitus type 2, Hypertension Instructions: ED Neck Sprain or Strain Prescriptions: New cyclobenzaprine [cyclobenzaprine] 10 mg tablet 10 mg PO QHS PRN PRN (Reason: Muscle Spasm) Qty: 10 0RF No Action insulin glargine [Lantus U-100 Insulin] 100 UNIT/ML solution 0 unit SQ PRN PRN (Reason: INSULIN PUMP FAILURE) flaxseed oil [[place]-3 Flaxseed Oil] 1,000 MG capsule 1,000 mg PO BID insulin aspart U-100 [Novolog U-100 Insulin aspart] 100 UNIT/ML solution 0 unit SQ DAILY Patient Comments: INSULIN PUMP nitroglycerin 0.4 MG tablet 0.4 mg sublingual Q5M PRN (Reason: Chest Pain) aspirin 81 MG tablet,chewable 81 mg PO DAILY@0800 calcium carbonate 500 MG tablet,chewable 1,500 mg PO BID ezetimibe 10 MG tablet 10 mg PO DAILY cholecalciferol (vitamin D3) [Vitamin D3] 1,000 UNIT tablet 2,000 unit PO DAILY salmon oil-omega-3 fatty acids 1 EACH capsule 1 cap PO BID sildenafil 100 MG tablet 100 mg PO DAILY PRN (Reason: erectile dysfunction) fluvastatin 80 MG tablet extended release 24 hr 80 mg PO DAILY amoxicillin 500 MG capsule 2,000 mg PO DAILY PRN PRN (Reason: dental appointment) Patient Comments: take 4 tablets by mouth 1 HOUR PRIOR TO APPOINTMENT magnesium oxide 400 MG tablet 400 mg PO BID vitamin B complex 1 EACH tablet 1 ea PO BID garlic-parsley 1 EACH tablet 1 tab PO BID metoprolol succinate 25 MG tablet extended release 24 hr 25 mg PO DAILY multivitamin with minerals 1 EACH tablet 1 tab PO DAILY cinnamon bark 500 MG capsule 500 mg PO BID glucosamine HCl 1,500 MG tablet 1,500 mg PO DAILY turmeric root extract 500 MG capsule 1,000 mg PO BID [id number] lipoic acid-co Q10 1 EACH capsule 1 tab PO DAILY Primary Care Provider: Yonny Eckert Referrals: Yonny Eckert PA [Primary Care Provider] - 5-7 Days Disposition Disposition: Home, Self Care
[2023-06-29 15:53] VITALS: BP 133/53; PULSE 68; RESP 16; TEMP 36.4; O2SAT 99
== END 2023-06-29 15:54 | disposition home or self-care (01) ==
PROVIDERS: Emergency Provider Emergency Medicine; PCP Physician Assistant; Visit Provider Emergency Medicine
DX: S16.1XXA Strain of muscle, fascia and tendon at neck level, initial encounter (principal); E11.9 Type 2 diabetes mellitus without complications; I10 Essential (primary) hypertension; X58.XXXA Exposure to other specified factors, initial encounter
CPT/HCPCS: 70450; 72125; 99282

== ENCOUNTER 2024-11-28 09:43 | Observation (INO) | payer MEDICARE, SELFPAY ==
[2024-11-28] VITALS (9 sets, daily range): BP systolic 129–165; BP diastolic 59–83; PULSE 50–77; RESP 16–20; TEMP 35.7–36.8; O2SAT 97–100; BMI 23.1; BMI 22.6
--- NOTE | 2024-11-28 10:07 | RAD_ITS ---
PROCEDURE: CHEST PA AND LATERAL 11/28/2024 REASON FOR EXAM: CHEST PAIN TECHNIQUE: CHEST PA AND LATERAL COMPARISON: Prior study dated February 22/2000 19. FINDINGS: Hardware: EKG electrodes are seen. Heart: Status post midline sternotomy and coronary artery bypass surgery. Mediastinum: The mediastinal contour is unremarkable. Lungs: Hyperinflation. Bones: Demineralization of the thoracic vertebrae. RAD/Chest PA and Lateral IMPRESSION: Hyperinflation. No acute abnormality is seen. Reading Location: [id number]
--- NOTE | 2024-11-28 10:12 | EDS_ITS ---
HPI History of Present Illness Chief Complaint: Chest Pain Narrative Narrative: Chief complaint and HPI: Chest pain. 74-year-old male with past medical history of DM, HTN, HLD, CAD status post CABG x 5 in 2017 presents for evaluation of chest pain. Patient states that he was walking outside when he developed midsternal chest pressure, shortness of breath, and near syncope. States that he took a nitro with minimal relief. States that he did take Viagra yesterday morning. Patient states his presyncopal symptoms have resolved but that he is still endorsing some chest pressure. He follows with cardiology at . States he has not had a cardiac catheterization since his CABG. Denies any history of CHF although states at baseline he has bilateral lower extremity edema. He denies any fever, chills, URI symptoms, abdominal pain, nausea, vomiting. Non- smoker. Denies any recent surgery or travel. Denies any bilateral calf pain. Review of systems: See HPI Medications: As listed on the chart Allergies: As listed on the chart PFSH: Per chart Vital signs: As listed on the chart. Reviewed. Physical exam: Gen: A&O x3, NAD Head: Normocephalic, atraumatic Eyes: No sclera icterus, conjunctiva clear ENT: Moist mucous membranes Neck: Trachea midline, No JVD CV: RRR, no murmurs, no peripheral edema Resp: Lungs CTA BL, no w/r/c GI: Abd soft, non-distended, non-tender, no r/r/g Musc: Full ROM, no deformity Skin: Warm, dry Neuro: Alert, oriented, grossly intact, sensation intact Psych: Cooperative, appropriate mood and affect [facility] Medical History (Updated 11/28/24 @ 13:[address] Harry Swan MD) Chest pain History of stress test Wears hearing aid in both ears Diabetes Non-smoker Hypertension Home Medications ?Medication ?Instructions ?Recorded ?Last Taken ?Type aspirin 81 mg chewable tablet 81 mg PO DAILY@0800 /12/3002/22/19 History calcium carbonate 1,500 mg PO BID 12/02/1502/02 History cholecalciferol (vitamin D3) 25 2,000 unit PO DAILY 02/22/19 History mcg (1,000 unit) tablet (Vitamin D3) ezetimibe 10 mg tablet 10 mg PO DAILY 12/02/1502/02 History flaxseed oil 1,000 mg capsule 1,000 mg PO BID 12/02/15 02/22/19 History ([place]-3 Flaxseed Oil) insulin aspart U-100 100 unit/mL 0 unit SQ DAILY 12/0102/22/19 History subcutaneous solution (Novolog U-100 Insulin aspart) insulin glargine 100 unit/mL 0 unit SQ PRN PRN INSULIN PUMP 12/02/15 Unknown History subcutaneous solution (Lantus FAILURE U-100 Insulin) nitroglycerin 0.4 mg sublingual 0.4 mg sublingual Q5M PRN Chest 12/02/15 02/22/19 History tablet Pain salmon oil 1,000 mg-omega-3 fatty 1 cap PO BID 6 02/22/19 History acids 210 mg capsule amoxicillin 500 mg capsule 2,000 mg PO DAILY PRN PRN d ental 02/22/19 02/20/19 History appointment cinnamon bark 500 mg capsule 500 mg PO BID 02/22/19 History fluvastatin 80 mg tablet,extended 80 mg PO DAILY 02/2202/22/19 History release 24 hr garlic-parsley tablet 1 tab PO BID 02/22/19 History glucosamine HCl 1,500 mg tablet 1,500 mg PO DAILY 02/0202/22/19 History magnesium oxide 400 mg (241.3 mg 400 mg PO BID 9 02/22/19 History magnesium) tablet metoprolol succinate 25 mg 25 mg PO DAILY 02/22/1902/02 History tablet,extended release 24 hr [id number] 800 mcg-alpha 1 tab PO DAILY supplemen t 02/22/19 02/22/19 History alipoic acid 150 mg-co Q10 50 mg capsule multivitamin with minerals 1 tab PO DAILY 02/22/1902/02 History sildenafil 100 mg tablet 100 mg PO DAILY PRN erectile 02/22/19 02/18/19 History dysfunction turmeric root extract 500 mg 1,000 mg PO BID 02/22/19 02/22/19 History capsule vitamin B complex 1 ea PO BID 02/22/19 9 History cyclobenzaprine 10 mg tablet 10 mg PO QHS PRN PRN Musc le Spasm 06/29/23 Unknown Rx #10 TABLETS Allergy/AdvReac Type Severity Reaction Status Date / Time oxycodone Allergy Mild PT UNSURE Verified 11/28/24 09:46 OF REACTION acetaminophen (From Vicodin) AdvReac NEEDS Verified 11/28/24 09:46 FOLLOW-UP gluten AdvReac NEEDS Verified 11/28/24 09:46 FOLLOW-UP hydrocodone (From Vicodin) AdvReac NEEDS Verified 11/28/24 09:46 FOLLOW-UP rosuvastatin (From Crestor) AdvReac NEEDS Verified 11/28/24 09:46 FOLLOW-UP succinylcholine AdvReac Unknown Verified 11/28/24 09:46
--- NOTE | 2024-11-28 10:12 | ED.VIS.CHEST ---
HPI History of Present Illness Chief Complaint: Chest Pain Narrative Narrative: Chief complaint and HPI: Chest pain. 74-year-old male with past medical history of DM, HTN, HLD, CAD status post CABG x 5 in 2017 presents for evaluation of chest pain. Patient states that he was walking outside when he developed midsternal chest pressure, shortness of breath, and near syncope. States that he took a nitro with minimal relief. States that he did take Viagra yesterday morning. Patient states his presyncopal symptoms have resolved but that he is still endorsing some chest pressure. He follows with cardiology at . States he has not had a cardiac catheterization since his CABG. Denies any history of CHF although states at baseline he has bilateral lower extremity edema. He denies any fever, chills, URI symptoms, abdominal pain, nausea, vomiting. Non-smoker. Denies any recent surgery or travel. Denies any bilateral calf pain. Review of systems: See HPI Medications: As listed on the chart Allergies: As listed on the chart PFSH: Per chart Vital signs: As listed on the chart. Reviewed. Physical exam: Gen: A&O x3, NAD Head: Normocephalic, atraumatic Eyes: No sclera icterus, conjunctiva clear ENT: Moist mucous membranes Neck: Trachea midline, No JVD CV: RRR, no murmurs, no peripheral edema Resp: Lungs CTA BL, no w/r/c GI: Abd soft, non-distended, non-tender, no r/r/g Musc: Full ROM, no deformity Skin: Warm, dry Neuro: Alert, oriented, grossly intact, sensation intact Psych: Cooperative, appropriate mood and affect [facility] Medical History (Updated 11/28/24 @ 13:[address] Harry Swan MD) Chest pain History of stress test Wears hearing aid in both ears Diabetes Non-smoker Hypertension Home Medications ?Medication ?Instructions ?Recorded ?Last Taken ?Type aspirin 81 mg chewable tablet 81 mg PO DAILY@0800 12/02/15 02/22/19 History calcium carbonate 1,500 mg PO BID 12/02/15 02/22/19 History cholecalciferol (vitamin D3) 25 2,000 unit PO DAILY 12/02/15 02/22/19 History mcg (1,000 unit) tablet (Vitamin D3) ezetimibe 10 mg tablet 10 mg PO DAILY 12/02/15 02/22/19 History flaxseed oil 1,000 mg capsule 1,000 mg PO BID 12/02/15 02/22/19 History ([place]-3 Flaxseed Oil) insulin aspart U-100 100 unit/mL 0 unit SQ DAILY 12/02/15 02/22/19 History subcutaneous solution (Novolog U-100 Insulin aspart) insulin glargine 100 unit/mL 0 unit SQ PRN PRN INSULIN PUMP 12/02/15 Unknown History subcutaneous solution (Lantus FAILURE U-100 Insulin) nitroglycerin 0.4 mg sublingual 0.4 mg sublingual Q5M PRN Chest 12/02/15 02/22/19 History tablet Pain salmon oil 1,000 mg-omega-3 fatty 1 cap PO BID 12/02/15 02/22/19 History acids 210 mg capsule amoxicillin 500 mg capsule 2,000 mg PO DAILY PRN PRN dental 02/22/19 02/20/19 History appointment cinnamon bark 500 mg capsule 500 mg PO BID 02/22/19 02/22/19 History fluvastatin 80 mg tablet,extended 80 mg PO DAILY 02/22/19 02/22/19 History release 24 hr garlic-parsley tablet 1 tab PO BID 02/22/19 02/22/19 History glucosamine HCl 1,500 mg tablet 1,500 mg PO DAILY 02/22/19 02/22/19 History magnesium oxide 400 mg (241.3 mg 400 mg PO BID 02/22/19 02/22/19 History magnesium) tablet metoprolol succinate 25 mg 25 mg PO DAILY 02/22/19 02/22/19 History tablet,extended release 24 hr [id number] 800 mcg-alpha 1 tab PO DAILY supplement 02/22/19 02/22/19 History alipoic acid 150 mg-co Q10 50 mg capsule multivitamin with minerals 1 tab PO DAILY 02/22/19 02/22/19 History sildenafil 100 mg tablet 100 mg PO DAILY PRN erectile 02/22/19 02/18/19 History dysfunction turmeric root extract 500 mg 1,000 mg PO BID 02/22/19 02/22/19 History capsule vitamin B complex 1 ea PO BID 02/22/19 02/22/19 History cyclobenzaprine 10 mg tablet 10 mg PO QHS PRN PRN Muscle Spasm 06/29/23 Unknown Rx #10 TABLETS Allergy/AdvReac Type Severity Reaction Status Date / Time oxycodone Allergy Mild PT UNSURE Verified 11/28/24 09:46 OF REACTION acetaminophen (From Vicodin) AdvReac NEEDS Verified 11/28/24 09:46 FOLLOW-UP gluten AdvReac NEEDS Verified 11/28/24 09:46 FOLLOW-UP hydrocodone (From Vicodin) AdvReac NEEDS Verified 11/28/24 09:46 FOLLOW-UP rosuvastatin (From Crestor) AdvReac NEEDS Verified 11/28/24 09:46 FOLLOW-UP succinylcholine AdvReac Unknown Verified 11/28/24 09:46 tramadol AdvReac Unknown Verified 11/28/24 09:46 Surgical History Hx of fusion of cervical spine History of carpal tunnel surgery History of hip replacement, total Previous back surgery History of coronary artery stent placement Hx of CABG Social History household members: spouse housing: house current occupational status: retired Smoking Status: Never smoker EXAM Physical Exam Const Vital Signs: 11/28/24 09:44 11/28/24 10:06 11/28/24 10:44 Temperature 96.3 F L Temperature Source Temporal Pulse Rate 77 52 L Respiratory Rate 16 20 H Respiratory Effort Normal Non-Labored Blood Pressure 165/83 H 130/61 H Blood Pressure Mean 110 84 Pulse Ox 100 100 Oxygen Delivery Method Room Air 11/28/24 11:02 11/28/24 12:00 11/28/24 13:00 Temperature Temperature Source Pulse Rate 52 L 51 L 57 L Respiratory Rate 20 H Respiratory Effort Blood Pressure 129/59 H 151/78 H 138/70 H Blood Pressure Mean 82 102 92 Pulse Ox 99 100 98 Oxygen Delivery Method Room Air 11/28/24 13:12 Temperature 98.3 F Temperature Source Pulse Rate 51 L Respiratory Rate 18 Respiratory Effort Blood Pressure 151/78 H Blood Pressure Mean 102 Pulse Ox 100 Oxygen Delivery Method MDM MDM MDM Narrative Medical decision making narrative: 74-year-old male with past medical history of DM, HTN, HLD, CAD status post CABG x 5 in 2017 presents for evaluation of chest pain. Patient states that he was walking outside when he developed midsternal chest pressure, shortness of breath, and near syncope. States that he took a nitro with minimal relief. States that he did take Viagra yesterday morning. On chart review, patient has a exercise stress test from 2019. Patient states he has not had a stress test since 2019. Differential diagnosis includes but is not limited to ACS, CHF, PE, electrolyte abnormality, arrhythmia, ARNOLD, dehydration. Aspirin ordered. Cardiac workup ordered. CBC without leukocytosis or anemia. Platelets unremarkable. Coagulation panel unremarkable. D-dimer unremarkable. BMP relatively unremarkable. BNP unremarkable. Troponin 45. I do not have a previous troponin to compare to. On reevaluation, patient not having chest pain but still endorsing chest pressure. Repeat EKG obtained. Sinus bradycardia with heart rate of 53. No ST elevation. EKG was personally reviewed and interpreted by me, ED physician. Repeat troponin 39. On reevaluation, patient still having chest pressure. Concern is for NSTEMI/ACS. Patient's heart score is a 6 which places him in moderate category. He will warrant admission. Cardiology was contacted, and I spoke with Dr. Swan. Plan is to obtain records from [facility]. Agrees with starting the patient on heparin. Plan will be serial troponins. Cardiac cath versus stress test pending on outlying facility records. I was able to get a hold of the patient's [facility]. He will fax over the records of the patient including the CABG operative report. He does not have the information currently in front of him. Patient admitted to the hospitalist service. EKG: Interpreted by me/EM physician: EKG shows normal sinus rhythm with an incomplete right bundle branch block. Heart rate 60. No acute ischemic changes. This is similar to EKG in 2019 Diagnostic: Interpreted by me/EM physician: Chest x-ray without pneumonia, effusion, cardiomegaly, pneumothorax. Radiology in agreement. Impression: 1. Chest pain, concern for ACS/NSTEMI 2. History of CAD status post CABG Lab Data Labs: Laboratory Results - last 24 hr 11/28/24 11/28/24 10:03 12:03 WBC 5.9 RBC 4.55 L Hgb 13.9 Hct 41.3 MCV 90.8 MCH 30.5 MCHC 33.7 RDW Std Deviation 42.3 RDW Coeff of Kavon 12.8 Plt Count 151 MPV 9.6 Immature Gran % (Auto) 0.300 Neut % (Auto) 49.7 Lymph % (Auto) 30.2 Citrus % (Auto) 14.5 H Eos % (Auto) 4.6 Baso % (Auto) 0.7 Absolute Neuts (auto) 2.9 Absolute Lymphs (auto) 1.79 Nucleated RBC % 0 PT 13.5 INR 1.0 APTT 30.4 D-Dimer Quant (PE/DVT) 0.32 Sodium 138 Potassium 4.2 Chloride 104 Carbon Dioxide 23.7 Anion Gap 10 BUN 18 Creatinine 0.89 Estim Creat Clear Calc 86.71 Est GFR (MDRD) Non-Af 90 BUN/Creatinine Ratio 20.5 H Glucose 109 H Hemoglobin A1c 7.2 H Calcium 9.5 Troponin T High Sens 45 H Troponin T Hi Sens 2 Hr 39 H NT pro BNP II 107 TSH 2.020 Radiography Diagnostic Testing: Clinical Impression(s) from Imaging Studies Chest X-Ray 11/28/24 10:07 IMPRESSION: Hyperinflation. No acute abnormality is seen. Reading Location: [facility] Discharge Plan Disposition Disposition: Acute Care Hospital [facility] Discharge Date/Time: 11/28/24 14:31
--- NOTE | 2024-11-28 10:15 | EKG12_ITS ---
Test Reason : REPEAT Blood Pressure : */* mmHG Vent. Rate : 53 BPM Atrial Rate : 53 BPM P-R Int : 198 ms QRS Dur : 110 ms QT Int : 456 ms P-R-T Axes : 43 -6 51 degrees QTcB Int : 427 ms Sinus bradycardia Possible Left atrial enlargement Incomplete right bundle branch block Borderline ECG Confirmed by Harry Swan ([id number]), publication editor KASSY CHILDERS ([id number]) on 11/29/2024 11:24:29 AM Referred By: Confirmed By: Harry Swan
[2024-11-28 10:22] LABS: Hematocrit 41.3 % (40-54); Hemoglobin 13.9 g/dL (13.0-16.5); Immature Granulocytes Count 0.020 X10^3/uL (0.0-0.0); Mean Corp Hgb Conc 33.7 g/dL (32-36); Mean Corpuscular Volume 90.8 fL (80-94); Mean Platelet Vol. 9.6 fl (6.2-12.0); NRBC Flagged by Analyzer 0 % (0-5); Platelet Count 151 K/mm3 (150-450); RBC Distribution Width CV 12.8 % (11.6-14.6); RBC Distribution Width SD 42.3 fl (35.1-43.9); Red Blood Count 4.55 M/mm3 (4.6-6.2); White Blood Count 5.9 K/mm3 (4.4-11.0)
[2024-11-28 10:30] LABS: Prothrombin Time (Protime)PT. 13.5 SECONDS (11.7-14.9)
[2024-11-28 10:31] LABS: Partial Thromboplast Time 30.4 Seconds (24.1-36.2)
[2024-11-28 10:41] LABS: D-Dimer Quantitative (DVT/PE) 0.32 FEU/ug/m (0.27-0.49)
[2024-11-28 10:47] LABS: Anion Gap 10 (5-15); BUN 18 mg/dL (4-19); BUN/Creat Ratio 20.5 RATIO (10-20); Calcium,Total 9.5 mg/dL (7.6-11.0); Carbon Dioxide 23.7 mmol/L (21.0-32.0); Chloride 104 mmol/L (98-108); Estimated Creatinine Clearance 86.71 ml/min (50-250); Glucose 109 mg/dL (70-99); Potassium 4.2 mmol/L (3.3-5.1); Pro- Brain NATRIURETIC PEPTIDE 107 pg/mL (<=900); Troponin T High Sensitivity 45 ng/L (<=22)
[2024-11-28 12:27] LABS: Troponin T High Sens 2 HR 39 ng/L (<=22)
--- NOTE | 2024-11-28 13:09 | PCM.CONS.C ---
Assessment & Plan Assessment/Plan (1) Chest pain: PLAN: Patient's chest discomfort certainly sounds potentially ischemic in etiology with the pressure sensation. It has been ongoing for 48 hours and his high-sensitivity troponin was only 45 and then down to 39. His ECG does not show any acute ischemic changes he has an incomplete right bundle branch block which is present by report on an old ECG. The patient does not remember his pre-CABG symptoms. He does not remember ever having chest pressure like this. This chest pressure was associated with a near syncopal spell but he had taken Viagra and then nitrates but I am uncertain of the timing of these 2 drugs in relation to his spell. He did not fall and did not completely pass out. But that is what brought him to the emergency department plus the chest pressure sensations. I would recommend that we obtain medical records from his matcher offbearer to identify the bypass grafts and document his medical therapy as there is some question about what meds he is taking in his home environment. In the interim I will place him on nitroglycerin paste topically and Lovenox full dose. If the patient's enzymes continue to go down on the third set would recommend stress testing in the next 24 to 48 hours. If the enzymes increase would reevaluate the patient for left heart catheterization. (2) Hypertension: QUALIFIERS: Hypertension type: primary hypertension Qualified Code(s): I10 - Essential (primary) hypertension PLAN: Patient reports to me that he is on amlodipine which would make sense from a cardiovascular standpoint for treating his hypertension but that is not in his med list. He is reportedly on metoprolol and he is bradycardic with a heart rate of 58 on his ECG. We need to obtain his accurate med list. In the interim I would recommend continuing him on low-dose beta-yuliana therapy given his chest symptoms. (3) Dyslipidemia: PLAN: Patient reports that he is intolerant of all statins higher however his med list reports he is on fluvastatin 80 mg daily with ezetimibe. He did tell me he was on ezetimibe. We need to obtain an accurate med list. PLAN: Plan 1. Obtain records from as soon as possible. 2. Treat the patient as an ischemic event with topical nitrates and full dose Lovenox. 3. Will reevaluate once we have the medical records from . 4. If enzymes remain stable or decreased would recommend treadmill stress echocardiogram in the next 24 hours. If enzymes increase would recommend left heart cath. HPI Consult Data Date of Consult: 11/28/24 HPI Narrative Reason for Consultation: Chest symptoms with the positive troponins HPI Narrative: RADHA KOO, is a 74 M who presents with a 2-day history of chest pressure sensation. The patient has a known history of coronary disease status post bypass graft surgery in 2017 at [facility]. The patient knows that he had a 5 vessel bypass but does not know the actual location of the grafts. They did harvest vein out of his right lower extremity. The patient was standing in his yard earlier today talking to someone doing yard work and developed the lightheadedness and near syncope. He had been having a pressure sensation in his chest that would wax and wane for 24 hours prior to that and then again during the day today. The patient took a nitroglycerin without any change he does not know the age of the nitro. The patient does not remember the exact symptoms he was having prior to his bypass graft surgery he does said he did not feel right and that led to a stress test which led to a cath which led to the CABG. Currently the patient is resting comfortably in a comfort position on the gurney in the ED and denies any ongoing chest pressure. He does note it has been coming and going since he has been in the emergency department. The ECG done twice showed normal sinus rhythm with an incomplete right bundle branch block and no obvious ST or T wave changes. Troponins were 45 on the first set at 39 on the delta troponin. The patient is intolerant to all statin therapy. He is also has celiac disease. The patient is on aspirin in his home environment he is on ezetimibe metoprolol succinate 25 mg daily and amlodipine which is not listed on his med list. They are also undetermined what meds he is actually taking. He thinks he is only on 3 medications at home. His apparently is trying to obtain his med list. We are also trying to obtain records from his matcher offbearer. The patient did take Viagra within the last 48 hours. But he also took nitro at home. [facility] Medical History (Updated 11/28/24 @ 13:[address] Harry Swan MD) Chest pain History of stress test Wears hearing aid in both ears Diabetes Non-smoker Hypertension Home Medications ?Medication ?Instructions ?Recorded ?Last Taken ?Type aspirin 81 mg chewable tablet 81 mg PO DAILY@0800 12/02/15 02/22/19 History calcium carbonate 1,500 mg PO BID 12/02/15 02/22/19 History cholecalciferol (vitamin D3) 25 2,000 unit PO DAILY 12/02/15 02/22/19 History mcg (1,000 unit) tablet (Vitamin D3) ezetimibe 10 mg tablet 10 mg PO DAILY 12/02/15 02/22/19 History flaxseed oil 1,000 mg capsule 1,000 mg PO BID 12/02/15 02/22/19 History ([place]-3 Flaxseed Oil) insulin aspart U-100 100 unit/mL 0 unit SQ DAILY 12/02/15 02/22/19 History subcutaneous solution (Novolog U-100 Insulin aspart) insulin glargine 100 unit/mL 0 unit SQ PRN PRN INSULIN PUMP 12/02/15 Unknown History subcutaneous solution (Lantus FAILURE U-100 Insulin) nitroglycerin 0.4 mg sublingual 0.4 mg sublingual Q5M PRN Chest 12/02/15 02/22/19 History tablet Pain salmon oil 1,000 mg-omega-3 fatty 1 cap PO BID 12/02/15 02/22/19 History acids 210 mg capsule amoxicillin 500 mg capsule 2,000 mg PO DAILY PRN PRN dental 02/22/19 02/20/19 History appointment cinnamon bark 500 mg capsule 500 mg PO BID 02/22/19 02/22/19 History fluvastatin 80 mg tablet,extended 80 mg PO DAILY 02/22/19 02/22/19 History release 24 hr garlic-parsley tablet 1 tab PO BID 02/22/19 02/22/19 History glucosamine HCl 1,500 mg tablet 1,500 mg PO DAILY 02/22/19 02/22/19 History magnesium oxide 400 mg (241.3 mg 400 mg PO BID 02/22/19 02/22/19 History magnesium) tablet metoprolol succinate 25 mg 25 mg PO DAILY 02/22/19 02/22/19 History tablet,extended release 24 hr [id number] 800 mcg-alpha 1 tab PO DAILY supplement 02/22/19 02/22/19 History alipoic acid 150 mg-co Q10 50 mg capsule multivitamin with minerals 1 tab PO DAILY 02/22/19 02/22/19 History sildenafil 100 mg tablet 100 mg PO DAILY PRN erectile 02/22/19 02/18/19 History dysfunction turmeric root extract 500 mg 1,000 mg PO BID 02/22/19 02/22/19 History capsule vitamin B complex 1 ea PO BID 02/22/19 02/22/19 History cyclobenzaprine 10 mg tablet 10 mg PO QHS PRN PRN Muscle Spasm 06/29/23 Unknown Rx #10 TABLETS Allergy/AdvReac Type Severity Reaction Status Date / Time oxycodone Allergy Mild PT UNSURE Verified 11/28/24 09:46 OF REACTION acetaminophen (From Vicodin) AdvReac NEEDS Verified 11/28/24 09:46 FOLLOW-UP gluten AdvReac NEEDS Verified 11/28/24 09:46 FOLLOW-UP hydrocodone (From Vicodin) AdvReac NEEDS Verified 11/28/24 09:46 FOLLOW-UP rosuvastatin (From Crestor) AdvReac NEEDS Verified 11/28/24 09:46 FOLLOW-UP succinylcholine AdvReac Unknown Verified 11/28/24 09:46 tramadol AdvReac Unknown Verified 11/28/24 09:46 Surgical History Hx of fusion of cervical spine History of carpal tunnel surgery History of hip replacement, total Previous back surgery History of coronary artery stent placement Hx of CABG Social History household members: spouse housing: house current occupational status: retired Smoking Status: Never smoker ROS Constitutional Constitutional: Reports as per HPI Eyes Eyes: Reports systems reviewed and no addt'l complaints, except as documented ENT HEENT: Reports systems reviewed and no addt'l complaints, except as documented Cardiovascular Cardiovascular: Reports as per HPI Respiratory/Chest Respiratory/Chest: Reports as per HPI Gastrointestinal Gastrointestinal: Reports systems reviewed and no addt'l complaints, except as documented Genitourinary Genitourinary: Reports as per HPI Musculoskeletal Musculoskeletal: Reports systems reviewed and no addt'l complaints, except as documented Integumentary Integumentary: Reports systems reviewed and no addt'l complaints, except as documented Neurologic Neurologic: Reports systems reviewed and no addt'l complaints, except as documented Psychiatric Psychiatric: Reports systems reviewed and no addt'l complaints, except as documented Endocrine Endocrinology: Reports systems reviewed and no addt'l complaints, except as documented Hematologic/Lymphatic Hematologic/Lymphatic: Reports systems reviewed and no addt'l complaints, except as documented Allergic/Immunologic Allergic/Immunologic: Reports as per HPI Physical Exam Const alert and oriented x3 HEENT normocephalic Eyes EOMs intact bilaterally Neck no JVD and no carotid bruits Chest inspection of chest normal Chest: midline sternotomy incision Resp normal respiratory effort and clear to auscultation bilaterally Cardio Rate: regular rate Rhythm: regular rhythm Heart Sounds: S1 normal and S2 normal; Negative for click, gallop or murmur Peripheral Pulses: radial pulses present bilateral 2+ and femoral pulses present bilateral (No bruits) 2+ GI soft to palpation and no bruits Extremity General Extremity: edema right lower extremity (None) and left lower extremity mild Neuro Neuro Narrative: Alert and oriented x 3 Psych mental status grossly normal Risk Stratification Risk Stratification Applicable: Yes Age >/= 65: Yes >/= 3 CAD Risk Factors (HTN, HLD, DM, family hx of CAD, or current smoker): Yes Aspirin Use in the Past 7 Days: Yes Severe Angina (>/= episodes in 24 hours): No EKG ST Changes >/= 0.5mm: No Positive Cardiac Marker: Yes PAVEL Risk Stratification Score: 4 PAVEL % Risk: 20% Risk Charges/Coding Visit Charges Inpatient E&M: 30802 Init Hosp L3 Objective Data Vital Signs: Vital Signs Temp Pulse Resp BP Pulse Ox O2 Del Method 96.3 F L 51 L 20 H 151/78 H 100 Room Air 11/28/24 09:44 11/28/24 12:00 11/28/24 11:02 11/28/24 12:00 11/28/24 12:00 11/28/24 12:00 Oxygen Delivery Method Room Air Weight: 185 lb 9.6 oz Body Mass Index (BMI) 23.1 Lab / Micro Data Attestation: I reviewed the patient's lab results. 11/28/24 10:03 11/28/24 10:03 Labs: Laboratory Results - last 24 hr 11/28/24 10:03: WBC 5.9, RBC 4.55 L, Hgb 13.9, Hct 41.3, MCV 90.8, MCH 30.5, MCHC 33.7, RDW Std Deviation 42.3, RDW Coeff of Kavon 12.8, Plt Count 151, MPV 9.6, Immature Gran % (Auto) 0.300, Neut % (Auto) 49.7, Lymph % (Auto) 30.2, [place] % (Auto) 14.5 H, Eos % (Auto) 4.6, Baso % (Auto) 0.7, Absolute Neuts (auto) 2.9, Absolute Lymphs (auto) 1.79, Nucleated RBC % 0, PT 13.5, INR 1.0, APTT 30.4, D-Dimer Quant (PE/DVT) 0.32, Sodium 138, Potassium 4.2, Chloride 104, Carbon Dioxide 23.7, Anion Gap 10, BUN 18, Creatinine 0.89, Estim Creat Clear Calc 86.71, Est GFR (MDRD) Non-Af 90, BUN/Creatinine Ratio 20.5 H, Glucose 109 H, Calcium 9.5, Troponin T High Sens 45 H, NT pro BNP II 107 11/28/24 12:03: Troponin T Hi Sens 2 Hr 39 H Cardiology Labs/Tests 11/28/24 10:03: WBC 5.9, RBC 4.55 L, Hgb 13.9, Hct 41.3, MCV 90.8, MCH 30.5, MCHC 33.7, Plt Count 151, MPV 9.6, Immature Gran % (Auto) 0.300, Neut % (Auto) 49.7, Lymph % (Auto) 30.2, [place] % (Auto) 14.5 H, Eos % (Auto) 4.6, Baso % (Auto) 0.7, Absolute Neuts (auto) 2.9, Nucleated RBC % 0, PT 13.5, INR 1.0, APTT 30.4, D-Dimer Quant (PE/DVT) 0.32, Sodium 138, Potassium 4.2, Chloride 104, Carbon Dioxide 23.7, Anion Gap 10, BUN 18, Creatinine 0.89, Est GFR (MDRD) Non-Af 90, BUN/Creatinine Ratio 20.5 H, Glucose 109 H, Calcium 9.5 Rhythm: EKG: ECHO: Stress Test: Cardiac Cath: PCI: CT Surgery: Holter monitor: EPS: PPM: CXR: Chest CT Scan: Radiography Diagnostic Testing: Radiology Impression Chest X-Ray 11/28/24 10:07 IMPRESSION: Hyperinflation. No acute abnormality is seen. Reading Location: [id number]
--- NOTE | 2024-11-28 13:27 | PCM.HP.STD ---
HPI - General General Date of Admission: 11/28/24 Date of Service: 11/28/24 Chief Complaint: Chest pain HPI Narrative RADHA KOO, is a 74 M who presented to [facility] ED on 11/28/2024 with chest pain. Medical history significant for CAD with stenting in 1999s and CABG x 5 in 2017 at in [place] and type 1 diabetes mellitus on insulin pump. Lives at home with his and is very active at baseline. Denies any heart related issues since 2017. He was walking outside this morning when he developed mid central chest pressure with shortness of breath and near syncope. He took a nitro at home with minimal relief. Notes that he did take Viagra yesterday morning as well. On arrival to the ED, his presyncopal symptoms had resolved but he was still reporting some chest pressure. On arrival to the ED he was hypertensive to 160 systolic but otherwise in normal sinus rhythm and stable on room air at rest. CBC and BMP were benign. Troponin trend 45 > 39. BNP normal. EKG showed normal sinus rhythm, no ST changes. Case was discussed with Dr. Swan with cardiology who recommended initiating heparin drip and obtaining records from cardiology to help determine further cardiac workup for the patient. Hospitalist was then contacted for admission. I saw the patient at bedside in the ED. Patient was very pleasant and sitting back comfortably in bed, conversing normally, in no acute distress. Noted that his chest pressure has now resolved. Denies any shortness of breath, nausea/vomiting or any other pain or discomfort. He does note that he has been under a good deal of stress recently. His brother a month or so ago and there is been issues with his will and estate documentation so he has been working through that. He has also been very active in helping out with his grandkids. States that he was outside a good deal yesterday and felt fatigued and a bit overheated. Also notes that his CGM with his insulin pump was not reading appropriately and was reprogrammed about a week ago. He had been having some low blood sugars for a few days and this was concerning to him, but since the pump was reprogrammed he has had no issues. Will be admitted for further management. [facility] Medical History (Updated 11/28/24 @ 13:[address] Harry Swan MD) Chest pain History of stress test Wears hearing aid in both ears Diabetes Non-smoker Hypertension Home Medications ?Medication ?Instructions ?Recorded ?Last Taken ?Type aspirin 81 mg chewable tablet 81 mg PO DAILY@0800 12/02/15 02/22/19 History calcium carbonate 1,500 mg PO BID 12/02/15 02/22/19 History cholecalciferol (vitamin D3) 25 2,000 unit PO DAILY 12/02/15 02/22/19 History mcg (1,000 unit) tablet (Vitamin D3) ezetimibe 10 mg tablet 10 mg PO DAILY 12/02/15 02/22/19 History flaxseed oil 1,000 mg capsule 1,000 mg PO BID 12/02/15 02/22/19 History ([place]-3 Flaxseed Oil) insulin aspart U-100 100 unit/mL 0 unit SQ DAILY 12/02/15 02/22/19 History subcutaneous solution (Novolog U-100 Insulin aspart) insulin glargine 100 unit/mL 0 unit SQ PRN PRN INSULIN PUMP 12/02/15 Unknown History subcutaneous solution (Lantus FAILURE U-100 Insulin) nitroglycerin 0.4 mg sublingual 0.4 mg sublingual Q5M PRN Chest 12/02/15 02/22/19 History tablet Pain salmon oil 1,000 mg-omega-3 fatty 1 cap PO BID 12/02/15 02/22/19 History acids 210 mg capsule amoxicillin 500 mg capsule 2,000 mg PO DAILY PRN PRN dental 02/22/19 02/20/19 History appointment cinnamon bark 500 mg capsule 500 mg PO BID 02/22/19 02/22/19 History fluvastatin 80 mg tablet,extended 80 mg PO DAILY 02/22/19 02/22/19 History release 24 hr garlic-parsley tablet 1 tab PO BID 02/22/19 02/22/19 History glucosamine HCl 1,500 mg tablet 1,500 mg PO DAILY 02/22/19 02/22/19 History magnesium oxide 400 mg (241.3 mg 400 mg PO BID 02/22/19 02/22/19 History magnesium) tablet metoprolol succinate 25 mg 25 mg PO DAILY 02/22/19 02/22/19 History tablet,extended release 24 hr [id number] 800 mcg-alpha 1 tab PO DAILY supplement 02/22/19 02/22/19 History alipoic acid 150 mg-co Q10 50 mg capsule multivitamin with minerals 1 tab PO DAILY 02/22/19 02/22/19 History sildenafil 100 mg tablet 100 mg PO DAILY PRN erectile 02/22/19 02/18/19 History dysfunction turmeric root extract 500 mg 1,000 mg PO BID 02/22/19 02/22/19 History capsule vitamin B complex 1 ea PO BID 02/22/19 02/22/19 History cyclobenzaprine 10 mg tablet 10 mg PO QHS PRN PRN Muscle Spasm 06/29/23 Unknown Rx #10 TABLETS Allergy/AdvReac Type Severity Reaction Status Date / Time oxycodone Allergy Mild PT UNSURE Verified 11/28/24 09:46 OF REACTION acetaminophen (From Vicodin) AdvReac NEEDS Verified 11/28/24 09:46 FOLLOW-UP gluten AdvReac NEEDS Verified 11/28/24 09:46 FOLLOW-UP hydrocodone (From Vicodin) AdvReac NEEDS Verified 11/28/24 09:46 FOLLOW-UP rosuvastatin (From Crestor) AdvReac NEEDS Verified 11/28/24 09:46 FOLLOW-UP succinylcholine AdvReac Unknown Verified 11/28/24 09:46 tramadol AdvReac Unknown Verified 11/28/24 09:46 Surgical History Hx of fusion of cervical spine History of carpal tunnel surgery History of hip replacement, total Previous back surgery History of coronary artery stent placement Hx of CABG Social History household members: spouse housing: house current occupational status: retired Smoking Status: Never smoker ROS Constitutional Constitutional: Denies chills, fatigue, fever(s) or weakness Eyes Eyes: Denies change in vision Cardiovascular Cardiovascular: Reports chest pain; Denies dyspnea on exertion, edema, lightheadedness, orthopnea or palpitations Respiratory/Chest Respiratory/Chest: Denies cough, shortness of breath at rest, shortness of breath with exertion or wheezing Gastrointestinal Gastrointestinal: Denies abdominal pain, nausea or vomiting Musculoskeletal Musculoskeletal: Denies arthralgias or myalgias Neurologic Neurologic: Denies dizziness, focal weakness or headache(s) Vital Signs Vital Signs Vital Signs: 11/28/24 09:44 11/28/24 10:06 11/28/24 10:44 Temperature 96.3 F L Temperature Source Temporal Pulse Rate 77 52 L Respiratory Rate 16 20 H Respiratory Effort Normal Non-Labored Blood Pressure 165/83 H 130/61 H Blood Pressure Mean 110 84 Pulse Ox 100 100 Oxygen Delivery Method Room Air 11/28/24 11:02 11/28/24 12:00 11/28/24 13:00 Temperature Temperature Source Pulse Rate 52 L 51 L 57 L Respiratory Rate 20 H Respiratory Effort Blood Pressure 129/59 H 151/78 H 138/70 H Blood Pressure Mean 82 102 92 Pulse Ox 99 100 98 Oxygen Delivery Method Room Air 11/28/24 13:12 Temperature 98.3 F Temperature Source Pulse Rate 51 L Respiratory Rate 18 Respiratory Effort Blood Pressure 151/78 H Blood Pressure Mean 102 Pulse Ox 100 Oxygen Delivery Method Weight Weight: 84.187 kg Body Mass Index (BMI) 23.1 Physical Exam Const alert, oriented x3, no apparent distress, average body habitus, healthy appearing and well nourished Constitutional Narrative: Pleasant elderly male, appears younger than stated age, sitting back comfortably in bed, conversing normally, in no acute distress. General Appearance: cooperative, comfortable, well kempt and well developed HEENT normocephalic, head/scalp atraumatic, hearing grossly normal bilaterally, nasal mucous membranes and turbinates normal and moist oral mucous membranes Eyes PERRL, EOMs intact bilaterally and conjunctivae normal Neck full ROM Chest inspection of chest normal Resp normal respiratory effort, normal air movement, no use of accessory muscles and clear to auscultation bilaterally Cardio regular rate, regular rhythm, no murmurs and peripheral pulses 2+ throughout GI normal to inspection, nondistended, normoactive bowel sounds, soft to palpation, non-tender and non-distended Back/Spine normal ROM Extremity full ROM Extremity Narrative: +1-2 lower extremity pitting edema in the left leg secondary to prior bypass surgery. Skin no rashes or lesions noted Psych mental status grossly normal Results Lab / Micro Data 11/28/24 10:03 11/28/24 10:03 Labs: Laboratory Results - last 24 hr 11/28/24 10:03: WBC 5.9, RBC 4.55 L, Hgb 13.9, Hct 41.3, MCV 90.8, MCH 30.5, MCHC 33.7, RDW Std Deviation 42.3, RDW Coeff of Kavon 12.8, Plt Count 151, MPV 9.6, Immature Gran % (Auto) 0.300, Neut % (Auto) 49.7, Lymph % (Auto) 30.2, [place] % (Auto) 14.5 H, Eos % (Auto) 4.6, Baso % (Auto) 0.7, Absolute Neuts (auto) 2.9, Absolute Lymphs (auto) 1.79, Nucleated RBC % 0, PT 13.5, INR 1.0, APTT 30.4, D-Dimer Quant (PE/DVT) 0.32, Sodium 138, Potassium 4.2, Chloride 104, Carbon Dioxide 23.7, Anion Gap 10, BUN 18, Creatinine 0.89, Estim Creat Clear Calc 86.71, Est GFR (MDRD) Non-Af 90, BUN/Creatinine Ratio 20.5 H, Glucose 109 H, Calcium 9.5, Troponin T High Sens 45 H, NT pro BNP II 107 11/28/24 12:03: Troponin T Hi Sens 2 Hr 39 H Imaging Radiology Impression Chest X-Ray 11/28/24 10:07 IMPRESSION: Hyperinflation. No acute abnormality is seen. Reading Location: [id number] Assessment & Plan Assessment/Plan (1) Chest pain: PLAN: Plan Patient is a 74-year-old male who presented [facility] ED on 11/28/2024 with chest pain. 1. Chest pain, ACS rule out; history of CAD with stenting and CABG, hypertension, hyperlipidemia ? Admit under observation status to PCU. Cardiology consulted. Patient had several stents placed in the 1999's. Most recently he had CABG x 5 done in 2017. Per records that were sent over, bypass grafts done were FALLON to LAD, SHIRA in situ to obtuse marginal, reverse SVG to first diagonal, reverse SVG and sequenced to PDA and KALYN. Saw cardiology in the office there in June, no issues noted, no changes to management. Patient reports no cardiac issues since 2017. Presented with midsternal chest pain and shortness of breath. Troponin trend 45 > 39. EKG with normal sinus rhythm and no ST changes. BNP normal. Per cardiology, initiated on heparin drip and they will determine next step in management regarding stress testing versus left heart catheterization. A1c 7.2% as below. Lipid panel and TSH ordered. Continue home aspirin and increase to high intensity atorvastatin. Continue home low-dose amlodipine and Toprol. 2. Type 1 diabetes mellitus ? Blood glucose 109 on admit. A1c 7.2%. On insulin pump with good glucose control. Okay to use home insulin pump while inpatient. DVT prophylaxis: Not indicated, on heparin drip CODE STATUS: Full code, verified Expected disposition: Home, TBD Total clinical time spent by myself addressing the patient's medical issues, reviewing all the data, and collaborating with patient's care team: 75 minutes. Charges/Coding Visit Charges Inpatient E&M: 63425 Init Hosp L3
[2024-11-28] MEDS: Heparin Injection (Vial) 5,000 UNIT/ML VIAL 4000 UNIT IV (13:32)
[2024-11-28] MEDS: HEPARIN/D5w 25,000 UNITS 25,000 UNITS/250 ML IV.SOLN. 10.1 UNITS CONT INF (13:34)
--- NOTE | 2024-11-28 14:53 | EKG12_ITS ---
Test Reason : CP Blood Pressure : */* mmHG Vent. Rate : 60 BPM Atrial Rate : 60 BPM P-R Int : 176 ms QRS Dur : 116 ms QT Int : 424 ms P-R-T Axes : 46 20 70 degrees QTcB Int : 424 ms Normal sinus rhythm Incomplete right bundle branch block Borderline ECG Confirmed by Harry Swan ([id number]), editorial writer KASSY CHILDERS ([id number]) on 11/29/2024 11:24:19 AM Referred By: Confirmed By: Harry Swan
[2024-11-28 15:10] LABS: Troponin T High Sensitivity 37 ng/L (<=22)
--- NOTE | 2024-11-28 15:26 | EKG12_ITS ---
Test Reason : Blood Pressure : */* mmHG Vent. Rate : 52 BPM Atrial Rate : 52 BPM P-R Int : 208 ms QRS Dur : 114 ms QT Int : 448 ms P-R-T Axes : 77 42 66 degrees QTcB Int : 416 ms Sinus bradycardia Possible Left atrial enlargement Incomplete right bundle branch block Borderline ECG When compared with ECG of 28-Nov-2024 11:12, MANUAL COMPARISON REQUIRED DATA IS UNCONFIRMED Confirmed by Harry Swan ([id number]), primer expeditor and drier KASSY CHILDERS ([id number]) on 11/30/2024 8:40:38 AM Referred By: Confirmed By: Harry Swan
[2024-11-28 17:18] LABS: Troponin T High Sens 2 HR 35 ng/L (<=22)
[2024-11-28 18:44] LABS: Troponin T High Sens 4 HR 38 ng/L (<=22)
[2024-11-28 20:51] LABS: Partial Thromboplast Time 145.7 Seconds (24.1-36.2)
[2024-11-28 22:25] LABS: Partial Thromboplast Time 129.4 Seconds (24.1-36.2)
[2024-11-29 03:15] VITALS: BP 111/60; PULSE 53; RESP 15; TEMP 36.8; O2SAT 98
[2024-11-29 06:57] LABS: Hematocrit 39.4 % (40-54); Hemoglobin 13.2 g/dL (13.0-16.5); Mean Corp Hgb Conc 33.5 g/dL (32-36); Mean Corpuscular Volume 91.8 fL (80-94); Mean Platelet Vol. 9.9 fl (6.2-12.0); Platelet Count 156 K/mm3 (150-450); RBC Distribution Width CV 12.9 % (11.6-14.6); RBC Distribution Width SD 43.6 fl (35.1-43.9); Red Blood Count 4.29 M/mm3 (4.6-6.2); White Blood Count 5.1 K/mm3 (4.4-11.0)
[2024-11-29 07:30] LABS: Anion Gap 10 (5-15); BUN 17 mg/dL (4-19); BUN/Creat Ratio 19.2 RATIO (10-20); Calcium,Total 9.3 mg/dL (7.6-11.0); Carbon Dioxide 24.3 mmol/L (21.0-32.0); Chloride 106 mmol/L (98-108); Cholesterol 112 mg/dL (<=200); Estimated Creatinine Clearance 85.54 ml/min (50-250); Glucose 93 mg/dL (70-99); Low Density Lipoprotein Calc. 45 mg/dL; Potassium 4.0 mmol/L (3.3-5.1); Triglycerides 50 mg/dL; Very Low Density Lipoprotein 10 mg/dL (5-40); cholesterol:hdl ratio screen 1.95
[2024-11-29 07:54] LABS: Partial Thromboplast Time 57.0 Seconds (24.1-36.2)
--- NOTE | 2024-11-29 07:59 | STE_ITS ---
Reason For Study Reason For Study: CHEST PAIN Stress Results Protocol: Jose Protocol Maximum Predicted HR: 146 bpm Target HR: 124 bpm % Maximum Predicted HR: 72 % DurationHeart Rate Stage (mm:ss) (bpm) BP Comment BASELINE 50 144/66 STAGE 1 3:00 105 132/62 STAGE 2 3:00 98 122/42 STAGE 3 1:00 104 / FATIGUE, NO CHEST PAIN RECOVERY 77 144/70 Stress Duration: 7:00 mm:ss Maximum Stress HR: 105 bpm Baseline Echocardiogram Findings Aortic valve sclerosis without stenosis. Stress Echo Wall motion Data Resting WM Intermediate WM Stress WM Resting Wall Motion Wall Motion Stress No regional wall motion abnormalities All wall segments augmenting post noted. exercise. No echo evidence of ischemia. Stress Results Blunted blood pressure response to exercise. Achieved 85% of the maximal age-predicted heart rate. EKG Data Baseline ECG with normal sinus rhythm. Peak exercise ECG with sinus tachycardia. No ischemic changes. Rare PVC noted. ECHO/Stress Test Echo w/o Contrast Interpretation Summary Peak exercise ECG with sinus tachycardia. No ischemic changes. Rare PVC noted. No echo evidence of ischemia. All wall segments augment normally postexercise. Blunted blood pressure response to exercise. Ordering Physician: Harry Swan Referring Physician: ASPEN Performed By: Dain Garcia RCS
--- NOTE | 2024-11-29 08:00 | PCM.PN.CARD ---
Subjective Subjective Patient reports he rested well and denies any anginal type symptoms this morning. Troponins have been stable in the mid 30s. ECG shows no acute ischemic changes he does have an incomplete right bundle branch block. Objective Data Vital Signs: Vital Signs Temp Pulse Resp BP Pulse Ox O2 Del Method 98.3 F 53 L 15 111/60 98 Room Air 11/29/24 03:15 11/29/24 03:15 11/29/24 03:15 11/29/24 03:15 11/29/24 03:11/29/24 03:15 Oxygen Delivery Method Room Air Weight: 183 lb 1.6 oz Body Mass Index (BMI) 22.6 Intake & Output: Intake and Output for Last 24 Hours 11/27/24 11/28/24 11/29/24 23:59 23:59 23:59 Intake Total 93.59 / 93.59 53.01 / 53.01 Balance 93.59 / 93.59 53.01 / 53.01 Lab / Micro Data Attestation: I reviewed the patient's lab results. 11/29/24 06:32 11/29/24 06:32 Labs: Laboratory Results - last 24 hr 11/28/24 10:03: WBC 5.9, RBC 4.55 L, Hgb 13.9, Hct 41.3, MCV 90.8, MCH 30.5, MCHC 33.7, RDW Std Deviation 42.3, RDW Coeff of Kavon 12.8, Plt Count 151, MPV 9.6, Immature Gran % (Auto) 0.300, Neut % (Auto) 49.7, Lymph % (Auto) 30.2, [place] % (Auto) 14.5 H, Eos % (Auto) 4.6, Baso % (Auto) 0.7, Absolute Neuts (auto) 2.9, Absolute Lymphs (auto) 1.79, Nucleated RBC % 0, PT 13.5, INR 1.0, APTT 30.4, D-Dimer Quant (PE/DVT) 0.32, Sodium 138, Potassium 4.2, Chloride 104, Carbon Dioxide 23.7, Anion Gap 10, BUN 18, Creatinine 0.89, Estim Creat Clear Calc 86.71, Est GFR (MDRD) Non-Af 90, BUN/Creatinine Ratio 20.5 H, Glucose 109 H, Hemoglobin A1c 7.2 H, Calcium 9.5, Troponin T High Sens 45 H, NT pro BNP II 107, TSH 2.020 11/28/24 12:03: Troponin T Hi Sens 2 Hr 39 H 11/28/24 14:15: Troponin T High Sens 37 H D 11/28/24 16:01: POC Glucose 164 H 11/28/24 16:14: Troponin T Hi Sens 2 Hr 35 H 11/28/24 17:55: Troponin T Hi Sens 4Hr 38 H 11/28/24 19:48: APTT 145.7 H* 11/28/24 21:15: APTT 129.4 H* 11/29/24 06:32: WBC 5.1, RBC 4.29 L, Hgb 13.2, Hct 39.4 L, MCV 91.8, MCH 30.8, MCHC 33.5, RDW Std Deviation 43.6, RDW Coeff of Kavon 12.9, Plt Count 156, MPV 9.9, APTT 57.0 H, Sodium 140, Potassium 4.0, Chloride 106, Carbon Dioxide 24.3, Anion Gap 10, BUN 17, Creatinine 0.89, Estim Creat Clear Calc 85.54, Est GFR (MDRD) Non-Af 90, BUN/Creatinine Ratio 19.2, Glucose 93, Calcium 9.3, Triglycerides 50, Cholesterol 112, LDL Cholesterol, Calc 45, VLDL Cholesterol 10, HDL Cholesterol 57, Cholesterol/HDL Ratio 1.95 Rhythm Strip Rhythm Strip: Sinus Rhythm Rate: 55 Cardiology Labs/Tests 11/28/24 10:03: WBC 5.9, RBC 4.55 L, Hgb 13.9, Hct 41.3, MCV 90.8, MCH 30.5, MCHC 33.7, Plt Count 151, MPV 9.6, Immature Gran % (Auto) 0.300, Neut % (Auto) 49.7, Lymph % (Auto) 30.2, [place] % (Auto) 14.5 H, Eos % (Auto) 4.6, Baso % (Auto) 0.7, Absolute Neuts (auto) 2.9, Nucleated RBC % 0, PT 13.5, INR 1.0, APTT 30.4, D-Dimer Quant (PE/DVT) 0.32, Sodium 138, Potassium 4.2, Chloride 104, Carbon Dioxide 23.7, Anion Gap 10, BUN 18, Creatinine 0.89, Est GFR (MDRD) Non-Af 90, BUN/Creatinine Ratio 20.5 H, Glucose 109 H, Hemoglobin A1c 7.2 H, Calcium 9.5 11/28/24 19:48: APTT 145.7 H* 11/28/24 21:15: APTT 129.4 H* 11/29/24 06:32: WBC 5.1, RBC 4.29 L, Hgb 13.2, Hct 39.4 L, MCV 91.8, MCH 30.8, MCHC 33.5, Plt Count 156, MPV 9.9, APTT 57.0 H, Sodium 140, Potassium 4.0, Chloride 106, Carbon Dioxide 24.3, Anion Gap 10, BUN 17, Creatinine 0.89, Est GFR (MDRD) Non-Af 90, BUN/Creatinine Ratio 19.2, Glucose 93, Calcium 9.3, Triglycerides 50, Cholesterol 112, VLDL Cholesterol 10, HDL Cholesterol 57, Cholesterol/HDL Ratio 1.95 Rhythm: EKG: ECHO: Stress Test: Cardiac Cath: PCI: CT Surgery: Holter monitor: EPS: PPM: CXR: Chest CT Scan: Radiography Diagnostic Testing: Radiology Impression Chest X-Ray 11/28/24 10:07 IMPRESSION: Hyperinflation. No acute abnormality is seen. Reading Location: [facility] Physical Exam Const alert and oriented x3 HEENT normocephalic Eyes EOMs intact bilaterally Neck no JVD Resp normal respiratory effort and clear to auscultation bilaterally Cardio Rate: regular rate Rhythm: regular rhythm Heart Sounds: S1 normal and S2 normal; Negative for click, gallop or murmur Extremity no pedal edema Neuro Neuro Narrative: Alert and oriented x 3 Psych mental status grossly normal Assessment & Plan Assessment/Plan (1) Chest pain: PLAN: Patient's chest discomfort resolved. He does note now on this morning's examination that he has been under a lot of stress over the last 2 weeks with the sudden of his brother and several other family issues. The patient's troponins have remained in the mid 30s on 4 sets. He has had no recurrence of his symptoms. I recommend the patient undergo stress echocardiogram as he can easily walk up 2 flights of stairs by his report. The patient had been ordered a Lexiscan nuclear stress test this was changed to stress echo given the fact the patient can walk 2 flights of stairs. (2) Coronary artery disease status post CABG: PLAN: Patient's bypass graft surgery in 2017 op report from [facility] shows that he received a FALLON to the LAD and in situ SHIRA to the OM branch of the circumflex, a vein graft to the diagonal 1 branch, and a sequential vein graft to the PDA and posterolateral branches of the right coronary artery. Patient really did not have definitive anginal symptoms preceding that event. He just did not feel right and the stress test was markedly abnormal resulting in his cath and subsequent bypass surgery. PLAN: Plan 1. Stress echocardiogram today. If normal patient can be discharged home if not normal we will have to reconsider left heart catheterization. 2. 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 3. Further recommendations pending the outcome of the stress test. Charges/Coding Visit Charges Inpatient E&M: 66598 Subs Hosp L2
--- NOTE | 2024-11-29 08:47 | PCM.PN.HOSP ---
Reason for Visit Chief Complaint: Chest pain Subjective Subjective Patient is a 74-year-old gentleman with past medical history significant coronary artery disease with previous CABG and stent placement dyslipidemia hypertension presented with chest pain Objective Data Objective Data Vital Signs: Vital Signs Temp Pulse Resp BP Pulse Ox O2 Del Method 98.3 F 53 L 15 111/60 98 Room Air 11/29/24 03:15 11/29/24 03:15 11/29/24 03:15 11/29/24 03:15 11/29/24 03:15 11/29/24 03:15 Oxygen Delivery Method Room Air Weight: 83.053 kg Body Mass Index (BMI) 22.6 Intake & Output: Intake and Output for Last 24 Hours 11/27/24 11/28/24 11/29/24 23:59 23:59 23:59 Intake Total 93.59 / 93.59 53.01 / 53.01 Balance 93.59 / 93.59 53.01 / 53.01 Lab / Micro Data 11/29/24 06:32 11/29/24 06:32 Labs: Laboratory Results - last 24 hr 11/28/24 10:03: WBC 5.9, RBC 4.55 L, Hgb 13.9, Hct 41.3, MCV 90.8, MCH 30.5, MCHC 33.7, RDW Std Deviation 42.3, RDW Coeff of Kavon 12.8, Plt Count 151, MPV 9.6, Immature Gran % (Auto) 0.300, Neut % (Auto) 49.7, Lymph % (Auto) 30.2, [place] % (Auto) 14.5 H, Eos % (Auto) 4.6, Baso % (Auto) 0.7, Absolute Neuts (auto) 2.9, Absolute Lymphs (auto) 1.79, Nucleated RBC % 0, PT 13.5, INR 1.0, APTT 30.4, D-Dimer Quant (PE/DVT) 0.32, Sodium 138, Potassium 4.2, Chloride 104, Carbon Dioxide 23.7, Anion Gap 10, BUN 18, Creatinine 0.89, Estim Creat Clear Calc 86.71, Est GFR (MDRD) Non-Af 90, BUN/Creatinine Ratio 20.5 H, Glucose 109 H, Hemoglobin A1c 7.2 H, Calcium 9.5, Troponin T High Sens 45 H, NT pro BNP II 107, TSH 2.020 11/28/24 12:03: Troponin T Hi Sens 2 Hr 39 H 11/28/24 14:15: Troponin T High Sens 37 H D 11/28/24 16:01: POC Glucose 164 H 11/28/24 16:14: Troponin T Hi Sens 2 Hr 35 H 11/28/24 17:55: Troponin T Hi Sens 4Hr 38 H 11/28/24 19:48: APTT 145.7 H* 11/28/24 21:15: APTT 129.4 H* 11/29/24 06:32: WBC 5.1, RBC 4.29 L, Hgb 13.2, Hct 39.4 L, MCV 91.8, MCH 30.8, MCHC 33.5, RDW Std Deviation 43.6, RDW Coeff of Kavon 12.9, Plt Count 156, MPV 9.9, APTT 57.0 H, Sodium 140, Potassium 4.0, Chloride 106, Carbon Dioxide 24.3, Anion Gap 10, BUN 17, Creatinine 0.89, Estim Creat Clear Calc 85.54, Est GFR (MDRD) Non-Af 90, BUN/Creatinine Ratio 19.2, Glucose 93, Calcium 9.3, Triglycerides 50, Cholesterol 112, LDL Cholesterol, Calc 45, VLDL Cholesterol 10, HDL Cholesterol 57, Cholesterol/HDL Ratio 1.95 Radiography Diagnostic Testing: Radiology Impression Chest X-Ray 11/28/24 10:07 IMPRESSION: Hyperinflation. No acute abnormality is seen. Reading Location: [facility] Rhythm Strip Rhythm Strip: Sinus Rhythm Rate: 55 Physical Exam Narrative GENERAL: cooperative HEENT: Atraumatic; normocephalic EYES; Anicteric, Normal Conjunctiva NECK; supple, normal thyroid, RESPIRATORY: Diminished to auscultation CARDIOVASCULAR: Regular S1 S2, GI: soft, normoactive bowel sounds, : No Renal angle tenderness; EXTREMITIES: No edema, no clubbing, MUSCULOSKELETAL: no muscle wasting NEURO: Awake; no lateralizing signs. SKIN: No Rash PSYCH; Flat affect Assessment & Plan Assessment/Plan (1) Chest pain: PLAN: Plan Patient is a 74-year-old gentleman with past medical history significant coronary artery disease with previous CABG and stent placement dyslipidemia hypertension presented with chest pain 1. Chest pain in the high risk patient. -Patient has been admitted to a monitored bed. Patient troponin on admission slightly elevated. Patient was started on heparin on admission admitted to a monitored bed consultation placed to cardiology definitive management regarding stress versus left heart cath defer to cardiology. Case was discussed with Dr. Swan plans for patient to undergo subsequent evaluation with a stress echo 3. Coronary artery disease ? With previous CABG and subsequent stent placement patient is on guideline directed medical therapy 3. Diabetes mellitus type 1 ? Patient is on insulin pump. Patient to manage his own pump while is in the hospital 4. Hypertension ? Blood pressure controlled, home medications continued with dose adjustment as needed 5. Dyslipidemia ?Patient is on statin therapy, continued at home dose 6. Generalized osteoarthritis ? With history of bilateral shoulder replacements and left hip replacement and back surgery. 7. DVT prophylaxis ? Patient is on heparin Charges/Coding Visit Charges Inpatient E&M: 58093 Subs Hosp L2
[2024-11-29 10:54] VITALS: BP 133/60; PULSE 55; RESP 14; TEMP 36.6; O2SAT 100
[2024-11-29 10:59] VITALS: PULSE 55
[2024-11-29] MEDS: Metoprolol(XL)Succ 25 MG Tablet PO (10:59)
[2024-11-29] MEDS: Cholecalciferol (VIT D3) 25 MCG TABLET (1,000 UNITS) 50 MCG PO (10:59)
--- NOTE | 2024-11-29 11:18 | DS.PCM_ITS ---
Providers Date of Admission: 11/28/24 Primary Care Physician: Jordyn Siddiqui IMMIGRATION CONSULTANT Consultations 11/28/24 14:45 Consult: Cardiology Routine Consulting Provider: Harry Swan Reason for Consult: chest pain EMERGENT Consult: No MD Notified: Yes Date Notified: 11/28/24 Time Notified: 13:30 Method of Notification: notified in ED Reason For Visit: CHEST PAIN Diagnosis Discharge Diagnosis (1) Chest pain: Status: Acute Plan Patient is a 74-year-old gentleman with past medical history significant coronary artery disease with previous CABG and stent placement dyslipidemia hypertension presented with chest pain 1. Chest pain in the high risk patient. -Patient has been admitted to a monitored bed. Patient troponin on admission slightly elevated. Patient was started on heparin on admission admitted to a monitored bed consultation placed to cardiology definitive management regarding stress versus left heart cath defer to cardiology. Case was discussed with Dr. Swan plans for patient to undergo subsequent evaluation with a stress echo ? Stress test echo results as below Peak exercise ECG with sinus tachycardia. No ischemic changes. Rare PVC noted. No echo evidence of ischemia. All wall segments augment normally postexercise. Blunted blood pressure response to exercise. Was discharged home to follow-up with his primary team for subsequent care 3. Coronary artery disease ? With previous CABG and subsequent stent placement patient is on guideline directed medical therapy 3. Diabetes mellitus type 1 ? Patient is on insulin pump. Patient to manage his own pump while is in the hospital 4. Hypertension ? Blood pressure controlled, home medications continued with dose adjustment as needed 5. Dyslipidemia ?Patient is on statin therapy, continued at home dose 6. Generalized osteoarthritis ? With history of bilateral shoulder replacements and left hip replacement and back surgery. 7. DVT prophylaxis ? Patient is on heparin Medications at Discharge Home Medications aspirin 81 mg chewable tablet 81 mg PO DAILY@0800 12/02/15 calcium carbonate 1,500 mg PO BID 12/02/15 cholecalciferol (vitamin D3) 25 mcg (1,000 unit) tablet (Vitamin D3) 1,000 unit PO DAILY 12/02/15 ezetimibe 10 mg tablet 10 mg PO DINNER 12/02/15 insulin aspart U-100 100 unit/mL subcutaneous solution (Novolog U-100 Insulin aspart) 0 unit SQ DAILY 12/02/15 insulin glargine 100 unit/mL subcutaneous solution (Lantus U-100 Insulin) 20 unit SQ QHS PRN INSULIN PUMP FAILURE 12/02/15 nitroglycerin 0.4 mg sublingual tablet 0.4 mg sublingual Q5M PRN Chest Pain 12/02/15 salmon oil 1,000 mg-omega-3 fatty acids 210 mg capsule 2 cap PO BID 12/02/15 amoxicillin 500 mg capsule 2,000 mg PO DAILY PRN PRN dental appointment 02/22/19 glucosamine HCl 1,500 mg tablet 1,500 mg PO DAILY 02/22/19 magnesium oxide 400 mg (241.3 mg magnesium) tablet 400 mg PO DAILY 02/22/19 metoprolol succinate 25 mg tablet,extended release 24 hr 25 mg PO DAILY 02/22/19 [id number] 800 mcg-alpha alipoic acid 150 mg-co Q10 50 mg capsule 1 tab PO DAILY supplement 02/22/19 multivitamin with minerals 1 tab PO DAILY 02/22/19 sildenafil 100 mg tablet 100 mg PO DAILY PRN erectile dysfunction 02/22/19 vitamin B complex 1 ea PO BID 02/22/19 cyclobenzaprine 10 mg tablet 10 mg PO QHS PRN PRN Muscle Spasm #10 TABLETS 06/29/23 amlodipine 2.5 mg tablet 2.5 mg PO DAILY 11/28/24 ascorbic acid (vitamin C) 1,000 mg tablet (C-1000) 1 g PO BID 11/28/24 [id number]-atz-mmbpc acid 167 mcg-lyc 100 mcg-lut 83 mcg-#185herb tablet (Diabetic Support Formula) 1 tab PO .qam 11/28/24 pravastatin 80 mg tablet 80 mg PO DAILY 11/28/24 Hospital Course Summary of Care Provided Minutes Spent on Discharge: 40 Physical Exam Narrative GENERAL: cooperative HEENT: Atraumatic; normocephalic EYES; Anicteric, Normal Conjunctiva NECK; supple, normal thyroid, RESPIRATORY: Diminished to auscultation CARDIOVASCULAR: Regular S1 S2, GI: soft, normoactive bowel sounds, : No Renal angle tenderness; EXTREMITIES: No edema, no clubbing, MUSCULOSKELETAL: no muscle wasting NEURO: Awake; no lateralizing signs. SKIN: No Rash PSYCH; Flat affect Weight / BMI Weight Weight: 83.053 kg Body Mass Index (BMI) 22.6 ABG / Lab / Microbiology Data 11/29/24 06:32 11/29/24 06:32 Laboratory: Laboratory Results - last 24 hr 11/28/24 10:03: Hemoglobin A1c 7.2 H, TSH 2.020 11/28/24 12:03: Troponin T Hi Sens 2 Hr 39 H 11/28/24 14:15: Troponin T High Sens 37 H D 11/28/24 16:01: POC Glucose 164 H 11/28/24 16:14: Troponin T Hi Sens 2 Hr 35 H 11/28/24 17:55: Troponin T Hi Sens 4Hr 38 H 11/28/24 19:48: APTT 145.7 H* 11/28/24 21:15: APTT 129.4 H* 11/29/24 06:32: WBC 5.1, RBC 4.29 L, Hgb 13.2, Hct 39.4 L, MCV 91.8, MCH 30.8, MCHC 33.5, RDW Std Deviation 43.6, RDW Coeff of Kavon 12.9, Plt Count 156, MPV 9.9, APTT 57.0 H, Sodium 140, Potassium 4.0, Chloride 106, Carbon Dioxide 24.3, Anion Gap 10, BUN 17, Creatinine 0.89, Estim Creat Clear Calc 85.54, Est GFR (MDRD) Non-Af 90, BUN/Creatinine Ratio 19.2, Glucose 93, Calcium 9.3, Triglycerides 50, Cholesterol 112, LDL Cholesterol, Calc 45, VLDL Cholesterol 10, HDL Cholesterol 57, Cholesterol/HDL Ratio 1.95 Radiography Diagnostic Testing: Radiology Impression Stress Echocardiogram 11/29/24 07:59 Interpretation Summary Peak exercise ECG with sinus tachycardia. No ischemic changes. Rare PVC noted. No echo evidence of ischemia. All wall segments augment normally postexercise. Blunted blood pressure response to exercise. Ordering Physician: Harry Swan Referring Physician: ASPEN Performed By: Dain Garcia RCS D/C Instructions Discharge Activity: Return to Normal Activity Call your doctor if you observe: Fever of 101 or Higher, Shortness of breath, Fainting spells and Chest pain DC O2, CPAP, BIPAP Needs Home O2 Discharge instructions: No Meaningful Use Info Meaningful Use Meaningful Use Diagnoses (Choose all that apply): None applicable Discharge Plan Admission Admit Date/Time: 11/28/24 13:28 Attending Provider: Naren Grimes Primary Care Provider: Jordyn Siddiqui Consulting Providers: Harry Swan; Solo Walsh Discharge Orders/Prescriptions Prescriptions: Continued insulin glargine [Lantus U-100 Insulin] 100 UNIT/ML solution 20 unit SQ QHS PRN insulin aspart U-100 [Novolog U-100 Insulin aspart] 100 UNIT/ML solution 0 unit SQ DAILY Patient Comments: INSULIN PUMP nitroglycerin 0.4 MG tablet 0.4 mg sublingual Q5M PRN (Reason: Chest Pain) aspirin 81 MG tablet,chewable 81 mg PO DAILY@0800 calcium carbonate 500 MG tablet,chewable 1,500 mg PO BID ezetimibe 10 MG tablet 10 mg PO DINNER cholecalciferol (vitamin D3) [Vitamin D3] 1,000 UNIT tablet 1,000 unit PO DAILY salmon oil-omega-3 fatty acids 1 EACH capsule 2 cap PO BID sildenafil 100 MG tablet 100 mg PO DAILY PRN (Reason: erectile dysfunction) amoxicillin 500 MG capsule 2,000 mg PO DAILY PRN PRN (Reason: dental appointment) Patient Comments: take 4 tablets by mouth 1 HOUR PRIOR TO APPOINTMENT magnesium oxide 400 MG tablet 400 mg PO DAILY vitamin B complex 1 EACH tablet 1 ea PO BID metoprolol succinate 25 MG tablet extended release 24 hr 25 mg PO DAILY multivitamin with minerals 1 EACH tablet 1 tab PO DAILY glucosamine HCl 1,500 MG tablet 1,500 mg PO DAILY [id number] lipoic acid-co Q10 1 EACH capsule 1 tab PO DAILY cyclobenzaprine 10 mg tablet 10 mg PO QHS PRN PRN (Reason: Muscle Spasm) Qty: 10 0RF amlodipine 2.5 mg tablet 2.5 mg PO DAILY pravastatin 80 mg tablet 80 mg PO DAILY Diabetic Support Formula 167-100-83 mcg tablet 1 tab PO .qam ascorbic acid (vitamin C) [C-1000] 1,000 mg tablet 1 g PO BID Discontinued flaxseed oil [[place]-3 Flaxseed Oil] 1,000 MG capsule 1,000 mg PO BID fluvastatin 80 MG tablet extended release 24 hr 80 mg PO DAILY garlic-parsley 1 EACH tablet 1 tab PO BID cinnamon bark 500 MG capsule 500 mg PO BID turmeric root extract 500 MG capsule 1,000 mg PO BID zinc 50 mg capsule 50 mg PO BID Referrals / Follow Up: Jordyn Siddiqui, JOVANA [Primary Care Provider] - Yonny Eckert PA [Non-Staff] - Within 2 Weeks Disposition Disposition (needs filled in before D/C Order can be placed): Home, Self Care Charges/Coding Visit Charges Inpatient E&M: 77546 Disch Hosp >30min
== END 2024-11-29 12:18 | disposition home or self-care (01) ==
LOC: ED 13:22 → PCU 13:46
PROVIDERS: Internal Medicine Cardiovascular Disease; Admitting Provider Hospitalist; Emergency Provider Surgery; PCP Clinical Nurse Specialist Adult Health; Visit Provider Internal Medicine
DX: R07.89 Other chest pain (principal); E10.9 Type 1 diabetes mellitus without complications; Z79.4 Long term (current) use of insulin; R55 Syncope and collapse; I10 Essential (primary) hypertension; Z96.41 Presence of insulin pump (external) (internal); K90.0 Celiac disease; Z79.899 Other long term (current) drug therapy; I25.10 Atherosclerotic heart disease of native coronary artery without angina pectoris; E78.5 Hyperlipidemia, unspecified; I45.10 Unspecified right bundle-branch block; Z95.1 Presence of aortocoronary bypass graft; R06.02 Shortness of breath; Z79.82 Long term (current) use of aspirin; M19.90 Unspecified osteoarthritis, unspecified site
CPT/HCPCS: 36415; 71046; 80048; 80061; 82962; 83036; 83880; 84443; 84484; 85025; 85027; 85379; 85610; 85730; 93005; 93017; 93350; 94668; 96365; 96366; 96376; 99221; 99285; A4216; G0378; J2785